=== PATIENT | male | born 1950 | race Caucasian/White ===

== ENCOUNTER 2022-09-05 10:25 | Day surgery (SDC) | payer MEDICARE, OTHER ==
[~2022-09-05] VITALS: Ht 193 cm; Wt 95.5 kg
[~2022-09-05 10:25] MED LIST: CYMBALTA20 MG PO; INTRINSI B12-F1 EACH PO; NEURONTIN100 MG PO; OSTERA TABLET1 EACH PO; RAPAFLO8 MG PO; SENOKOT8.6 MG PO; TRUSOPT10 ML; VYVANSE20 MG PO
[2022-09-05] MEDS ORDERED: IBUPROFEN200 MG PO (10:54)
--- NOTE | 2022-09-05 13:05 | NUR ---
09/05/22 1305 Marlee Anderson 1300 PATIENT ARRIVES TO PACU AWAKE BUT DROWSY. LAYING PRONE, REPOSITIONS SELF TO LEFT LATERAL POSITION. RESP EVEN AND UNLABORED, OXYGEN OFF, ROOM AIR SATS 100%. REPORTS MINMAL PRESSURE LEFT HIP AREA. DENIES NAUSEA.
--- NOTE | 2022-09-14 10:26 | PATH ---
[facility] [address] [facility] [place], [place] [address] Signed THIS IS AN ADDENDUM REPORT SPECIMEN(S): A BONE MARROW - CORE SPECIMEN(S): B BONE MARROW - ASPIRATION SPECIMEN(S): C FLOW CYTOMETRY, BM EDTA ASP CLINICAL HISTORY: 72-year-old male with chronic hypoplastic anemia and variable leukopenia. D46.9 (myelodysplastic syndrome, unspecified) DIAGNOSIS SUMMARY: Peripheral blood - Borderline macrocytic anemia. - No circulating blasts are identified. Bone marrow biopsy and aspiration: - Normocellular marrow, 30%, with 1% blasts. - Trilineage hematopoiesis with no significant dyspoiesis. - Decreased marrow iron stores by Prussian Blue stain. - No malignancy is identified. - See Diagnostic Comment. DIAGNOSTIC COMMENT: The marrow is normocellular with no significant morphologic dyspoiesis. A reactive process is favored for the reported variable leukopenia. Reactive etiologies for the reported macrocytic anemia should be excluded to include thyroid disease and nutritional disorders. The marrow iron stores appear decreased by Prussian Blue staining. Correlation with serum iron stores is needed. Pending studies at the time of this report include chromosome analysis, FISH study for MDS and NGS myelodysplasia profile. These results will be reported in an addendum. JLP:C2NR HISTORICAL SUMMARY: 72-year-old male with a clinical history of macrocytic anemia and variable leukopenia. There are no prior hematology cases in the [facility] data base. This bone marrow exam is for diagnosis. PERIPHERAL BLOOD: HEMOGRAM (09/05/2022): WBC 4.7 K/ul, RBC 3.93 M/ul, HGB 13.1 g/dl, HCT 39.7%, MCV 100.7 fl, MCH 33.4 pg, MCHC 33.1 g/dl, RDW 13.1%, PLT 209 K/ul. PATIENT NAME: OHNEY REECE PATHOLOGY DATE OF : 52 REPORT #: [id number] PHYSICIAN: TOBY PATHOLOGY PCP: RICHARD OVALLE MD REPORT IS CONFIDENTIAL AND NOT TO BE RELEASED WITHOUT AUTHORIZATION [facility] [address] [place], [place] [address] Signed AUTOMATED DIFFERENTIAL COUNT: Neutrophils 64.8%, lymphocytes 20.7%, monocytes 9.7%, eosinophils 3.5%, basophils 1.3%. The red blood cells are borderline macrocytic and normochromic with minimal anisopoikilocytosis. The neutrophils are unremarkable. Lymphocytes are composed of small mature appearing forms. Platelets appear normal in number and morphology with no platelet clumping or RBC microangiopathic effect identified. No blasts are identified. BONE MARROW: ASPIRATE SMEARS/TOUCH IMPRINT: The aspirate smears are mostly hemodilute but one smear has marrow spicules and is adequate for evaluation. Scattered erythroid precursors show adequate maturation with essentially normal morphology. The myeloid precursors show full maturation with unremarkable morphology. There is no increase in blasts. Megakaryocytes are identified with a normal morphology. BONE MARROW DIFFERENTIAL COUNT (300 cells): Blasts 1%, promyelocytes 1%, myelocytes 7%, metamyelocytes/bands/segs 39%, erythroid precursors 38%, lymphocytes 6%, monocytes 3%, eosinophils 4%, plasma cells 1%. M:E ratio: 1.4:1 BONE MARROW CORE BIOPSY/ASPIRATE CLOT/CELL BLOCK: The aspirate clot section and the core biopsy are adequate for evaluation. The core biopsy demonstrates unremarkable trabecular bone. The cellularity is normal for age, estimated at 30%. The erythroid precursors are within normal limits with essentially unremarkable maturation. The myeloid precursors are unremarkable with no significant dyspoiesis. Blasts are not increased. Megakaryocytes appear normal in number and in morphology. No granulomas, atypical lymphoid aggregates or foreign malignant cells are detected. SPECIAL STAINS (with adequate controls): - iron (aspirate smear): No marrow spicules are present for evaluation of marrow iron stores. - iron (cell block): Decreased marrow iron stores by Prussian Blue stain. No ring sideroblasts are identified. - PAS (block A1): Normal megakaryocytes in number and in morphology. IMMUNOHISTOCHEMISTRY STAINS (performed on block A1 with adequate controls). - CD34: 1% - CD117: 1% - CD71: 20% - CD138: 1% FLOW CYTOMETRY: PATIENT NAME: HONEY REECE PATHOLOGY DATE OF : 52 REPORT #: [id number] PHYSICIAN: TOBY PATHOLOGY PCP: RICHARD OVALLE MD REPORT IS CONFIDENTIAL AND NOT TO BE RELEASED WITHOUT AUTHORIZATION [facility] [address] [place], [place] [address] Signed Bone marrow, flow cytometry: - No diagnostic abnormal populations are identified by flow cytometry. - See Comment. COMMENT: While no hematopoietic abnormality is detected in this study, correlation with clinical, morphologic, and genetic findings is recommended for full interpretation and to assess for disease processes not fully examined by flow cytometry analysis, including myelodysplastic syndrome and myeloproliferative neoplasm. FLOW CYTOMETRY ANALYSIS: FLOW DIFFERENTIAL (% Total CD45 vs. SSC gating): Myeloid 84%; Lymphoid 7%; Monocyte 2%; Dim CD45/Blast: 0.6%. Cell Count: 8.3 x 10*3/uL. POPULATION ANALYSIS: BLASTS: Analysis of the dim CD45 gate demonstrates 0.6% myeloblasts by CD34/CD117. 0.4% hematogones are also detected. LYMPHOID CELLS: The lymphocyte gate comprises 7% of total events and includes 77% T-cells with a CD4:CD8 ratio of 2.4:1 and normal benitez T-cell antigen expression. 5% of lymphocytes are polyclonal B-cells with a kappa:lambda ratio of 1.7:1. The remainders are NK-cells. MYELOID CELLS: The myeloid population comprises 7% of the total events. Some increased CD56 expression is observed. MONOCYTES: The monocyte population comprises 2% of the total events. Monocytes are not increased. Some increased CD56 expression is observed. PLASMA CELLS: 0.4% plasma cells are detected in the screening gate neg-dimCD45/CD38. Plasma cells are CD45 dim and positive for CD19. MAST CELLS: 0.2% of total events are mast cells (n=31). ANTIBODIES USED: KAPPA, LAMBDA, CD20, CD10, CD19, CD23, CD38, CD16, CD56, CD8, CD5, CD2, CD4, CD7, CD3, CD14, CD33, CD13, HLADR, CD34, CD117, CD15, CD45: TOTAL ANTIBODIES USED: 23. JNB FINAL DIAGNOSIS PERFORMED BY: Fareed Mohan MD, Sep 06 2022 4:47PM CYTOGENETICS: Chromosome analysis is pending, and the result will be reported in an addendum. FISH ANALYSIS: A FISH panel for MDS is pending, and the result will be reported in an addendum. PATIENT NAME: HONEY REECE PATHOLOGY DATE OF : 52 REPORT #: [id number] PHYSICIAN: TOBY MALHOTRA PCP: RICHARD OVALLE MD REPORT IS CONFIDENTIAL AND NOT TO BE RELEASED WITHOUT AUTHORIZATION [facility] [address] [place], [place] [address] Signed MOLECULAR / PCR: NeoTYPE NGS MDS/CMML panel is requested, and the result will be reported in an addendum. GROSS DESCRIPTION: Two specimens are received in two containers, labeled "CL." A. The specimen, labeled "CL, core," is received in formalin and consists of two cores of brown-reilly bone (1.0 and 1.2 cm in length by 0.2 cm diameter). The specimen is submitted entirely in cassette A1 following decalcification in Immunocal. B. The specimen, labeled "CL, clot," is received in formalin and consists of a portion of red-brown clot (2.0 x 0.8 x 0.2 cm in aggregate). The specimen is submitted entirely in cassette B1. AC (under the direct supervision of a pathologist) The Gross Description was prepared using a voice recognition system. The report was reviewed for accuracy; however, sound-alike word errors, addition and/or deletions may occur. If there is any question about this report, please contact Client Services. ADDITIONAL NOTES: This test was developed and its performance characteristics determined by [facility]. It has not been cleared or approved by the US Food and Drug Administration. The FDA does not require this test to go through premarket FDA review. This test is used for clinical purposes. It should not be regarded as investigational or for research. This laboratory is certified under the Clinical Laboratory Improvement Amendments (CLIA) as qualified to perform high complexity clinical laboratory testing. Immunohistochemical and/or in situ hybridization studies were performed on this case with the appropriate positive controls that react as expected. This test was developed and its performance characteristics determined by [facility]. It has not been cleared or approved by the U.S. Food and Drug Administration. The FDA has determined that such clearance or approval is not necessary. This test is used for clinical purposes. It should not be regarded as investigational or for research. [facility] is certified under the Clinical Laboratory Improvement Amendments of 1988 (CLIA) as qualified to perform high complexity clinical laboratory testing. This assay has not been validated for specimens that have been decalcified. PATIENT NAME: HONEY REECE PATHOLOGY DATE OF : 52 REPORT #: [id number] PHYSICIAN: TOBY MALHOTRA PCP: RICHARD OVALLE MD REPORT IS CONFIDENTIAL AND NOT TO BE RELEASED WITHOUT AUTHORIZATION [address] [address] Signed In this case, certain antibodies were performed by both immunohistochemistry and flow cytometry analysis because flow cytometry analysis did not fully explain all the light microscopic findings. Immunohistochemistry aided in the analysis. Both methods are deemed medically necessary in this case. PERFORMING LABORATORY: The technical component was performed by [facility], [address] [id number] (CLIA#: [id number]). Professional interpretation was performed by [facility] - [facility], [address] [place] [phone] (CLIA#: [id number]). A portion of the technical component was performed by [facility], [address] [place] [address] (CLIA# [id number]). A portion of the technical component was performed by [facility], [facility] [place] [address] (CLIA#: [id number]). Professional interpretation was performed by [facility] - [facility], [address] [place] [phone] (CLIA#: [id number]). IMAGES: A: [id number] A: [id number] SPECIMEN SOURCE: A. FISH Analysis, MDS FISH, BM EDTA CLINICAL HISTORY: 72-year-old male with chronic hypoplastic anemia and variable leukopenia. D46.9 (myelodysplastic syndrome, unspecified) FISH (fluorescence in situ hybridization) RESULT: Not Detected INTERPRETATION: 5q deletion/monosomy 5: Not detected. 7q deletion/monosomy 7: Not detected. Trisomy 8: Not detected. 20q deletion: Not detected. KMT2A (MLL) rearrangement: Not detected. Fluorescence in situ hybridization (FISH) analysis was performed using a specific set of probes for myelodysplastic syndrome. Counts for all probe signals were within the normal reference range. This finding represents a NORMAL result. FISH should be interpreted within the context of a full cytogenetic analysis and hematologic evaluation. PATIENT NAME: HONEY REECE PATHOLOGY DATE OF : 52 REPORT #: [id number] PHYSICIAN: TOBY PATHOLOGY PCP: RICHARD OVALLE MD REPORT IS CONFIDENTIAL AND NOT TO BE RELEASED WITHOUT AUTHORIZATION [facility] [address] [place], [place] [address] Signed ISCN: Probe Set Detail: EGR1/T7G111: nuc josiah 5p15.31(N0F055p8), 5q31(EGR1x2)[200] X9I830/CEP7: nuc josiah 7q31(B8V220q9),7q11.2q11.21(CEP7x2)[200] CEP8: nuc josiah 8q11.1q11.21(CEP8x2)[200] L94E345: nuc josiah 20q12(I61Q017m6)[200] KMT2A (MLL): nuc josiah 11q23(5'KMT2A,3'KMT2A)x2(5'KMT2A con 3'AFL2Nr8)[200] References: Sherron Truong (2013) Hematology Am Soc Hematol Educ Program 2013:504-10. PMID [id number] Maddie Moore and Keely Jackman (2011) Hematology 16(3):131-8. PMID: [id number] FISH Analysis Summary: Nuclei Scored: 200 Scoring Method: Manual; CPT Code 60577 Number of Probe units: 4 Multiplex Cells analyzed: Interphase Probe sets: Chrom 8: LACI 8, Chrom 20: D61O862, Chrom 5: EGR1, Chrom 5: H9R824, Chrom 7: CEN7, Chrom 7: Q2D0132, Chrom 11: KMT2A (MLL) 3', Chrom 11: KMT2A (MLL) 5 ADDITIONAL NOTES: This test was developed and its performance characteristics determined by [facility] It has not been cleared or approved by the US Food and Drug Administration. The O[employer]o DNA probe vendor for this study was [employer]. PERFORMING LABORATORY: The technical component of the FISH testing was performed by [facility], [address] [place] [address] [place] [address] (CLIA#: [id number]). [facility], [address] [place] [phone] (CLIA#: [id number]). FINAL DIAGNOSIS PERFORMED BY: Shireen Baca MD, Pathologist Sep 14 2022 9:10AM REASON FOR ADDENDUM: To add results of additional testing. Diagnostician: Fareed Mohan MD Pathologist Diagnostician: Shireen Baca MD Pathologist PATIENT NAME: HONEY REECE PATHOLOGY DATE OF : 52 REPORT #: [id number] PHYSICIAN: TOBY MALHOTRA PCP: RICHARD OVALLE MD REPORT IS CONFIDENTIAL AND NOT TO BE RELEASED WITHOUT AUTHORIZATION [facility] [address] [place], [place] [address] Signed Diagnostician: Derrick Caballero MD, FACP Pathologist Electronically Signed 09/14/2022 Copies: ~ PATIENT NAME: HONEY REECE PATHOLOGY DATE OF : 52 REPORT #: [id number] PHYSICIAN: TOBY PATHOLOGY PCP: RICHARD OVALLE MD REPORT IS CONFIDENTIAL AND NOT TO BE RELEASED WITHOUT AUTHORIZATION
== END 2022-09-05 13:35 | disposition home or self-care (01) ==
LOC: DS 10:25 → OPS 10:25 → DS 12:00 → OPS 13:35
PROVIDERS: ATTEND Specialist
PROC: 07JT3ZZ Inspection of Bone Marrow, Percutaneous Approach (ICD-10-PCS; principal; 2022-09-05 12:00)
DX: D46.9 Myelodysplastic syndrome, unspecified (principal); F41.9 Anxiety disorder, unspecified; N40.0 Benign prostatic hyperplasia without lower urinary tract symptoms
CPT/HCPCS: 36415; 85025; 88184; 88185; 88305; 88311; 88313; 88342; 88360; 88377; A9270; J2704; J7121

== ENCOUNTER 2025-07-15 18:52 | Emergency (ER) | payer MEDICARE, OTHER ==
[~2025-07-15] VITALS: Ht 193 cm; Wt 99.1 kg
--- OUTSIDE RECORDS SUMMARY | ~2025-07-15 | XMS | Continuity of Care Document ---
Demographics + + + | Address | [address] | | | [place] [address] | + + + | Preferred Language | Unknown | + + + | Marital Status | | + + + | Presybeterian Affiliation | Unknown | + + + | Race | White | + + + | Ethnic Group | Not or | + + + Author + + + | Author | [facility] | + + + | Organization | [facility] | + + + | Address | [address] | | | [place] [address] | + + + | Phone | | + + + Care Team Providers + + + + | Care Passenger Service Agent Name | Role | Phone | + + + + Unavailable | Unavailable | + + + + Allergies No information. Encounters No information. Functional Status No information. Immunizations No information. Medications No information. 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 Results/Labs No information. Social History +--------+ + + | date | description | facility | +--------+ + + Vital Signs No information."
[~2025-07-15 18:52] MED LIST changes: +IBUPROFEN200 MG PO; -INTRINSI B12-F1 EACH PO; +VITAMIN B-121000 MCG PO
[2025-07-15 21:05] LABS: BASOPHILS 0.3 % (0.2-1.2); EOSINOPHILS 1.0 % (0.8-7.0); LYMPHOCYTES 5.8 % (21.8-53.1); MCH 33.4 PG (25.7-32.2); MCHC 34.1 g/dL (32.3-36.5); MCV 97.9 fL (79.0-92.2); MONOCYTES 6.2 % (5.3-12.2); NEUTROPHILS 86.6 % (34.0-67.9); RBC 4.31 M/uL (4.63-6.08)
[2025-07-15] MEDS ORDERED: LACTATED RINGER'S 1,000 ML IV ONE ×2 (21:15→23:00)
[2025-07-15 21:26] LABS: ALT (SGPT) 29.0 U/L (14-59); AST (SGOT) 35.0 U/L (15-37); GLOMERULAR FILTRATION RATE,EST 90.0 mL/min (>60); PROTEIN, TOTAL 7.4 g/dL (6.4-8.2); UREA NITROGEN 22.0 mg/dL (7-18)
[2025-07-15] MEDS ORDERED: TRAMADOL HCL50 MG PO (21:26)
[2025-07-15 23:25] LABS: BLOOD/HGB, URINE TRACE-I (Negative); KETONE, URINE SMALL (Negative); LEUK ESTERASE, URINE NEGATIVE (negative); NITRITE, URINE NEGATIVE (negative)
[2025-07-15 23:30] LABS: EPITHELIAL CELLS, URINE SQUAMOUS 1+ /lpf (0-1+)
[2025-07-15 23:31] LABS: BACTERIA, URINE RARE /hpf (negative); CASTS, URINE NONE SEEN \\lpf; CRYSTALS, URINE NONE SEEN (0-1+); REFLEX CULTURE, URINE No (No)
[2025-07-16 02:31] VITALS: BP 128/57
[2025-07-16] MEDS ORDERED: DORZOLAMIDE-TIM10 ML OS (09:04)
[2025-07-16] MEDS ORDERED: DULOXETINE HCL60 MG PO (09:05)
[2025-07-16] MEDS ORDERED: IBUPROFEN600 MG PO (11:52)
[2025-07-16] MEDS ORDERED: ZANAFLEX4 MG PO (11:53)
[2025-07-16] MEDS ORDERED: PEPCID20 MG PO (11:55)
[2025-07-16] MEDS ORDERED: COLACE100 MG PO (11:55)
== END 2025-07-16 00:50 | disposition home or self-care (01) ==
LOC: ED 18:52
PROVIDERS: Internal Medicine
DX: K59.00 Constipation, unspecified (principal); E86.0 Dehydration; Z79.899 Other long term (current) drug therapy
CPT/HCPCS: 36415; 51798; 80053; 81001; 84443; 85025; 96360; 96361; 99283-25; J2212; J7121

== ENCOUNTER 2025-07-16 03:15 | Inpatient (IN) | payer MEDICARE, OTHER ==
[2025-07-16] VITALS (12 sets, daily range): BP systolic 125–169; BP diastolic 61–87
[~2025-07-16] VITALS: Ht 193 cm; Wt 100.6 kg
--- OUTSIDE RECORDS SUMMARY | ~2025-07-16 | XMS | Continuity of Care Document ---
Demographics + + + | Address | [address] | | | [place] [address] | + + + | Preferred Language | Unknown | + + + | Marital Status | | + + + | Voodoo Affiliation | Unknown | + + + | Race | White | + + + | Ethnic Group | Not or | + + + Author + + + | Author | [facility] | + + + | Organization | [facility] | + + + | Address | [address] | | | [place] [address] | + + + | Phone | | + + + Care Team Providers + + + + | Care Cake Press Operator Helper Name | Role | Phone | + [...]
--- OUTSIDE RECORDS SUMMARY | ~2025-07-16 | XMS | Continuity of Care Document ---
Demographics + + + | Address | [address] | | | [place] [address] | + + + | Preferred Language | Unknown | + + + | Marital Status | | + + + | Spiritism Affiliation | Unknown | + + + | Race | White | + + + | Ethnic Group | Not or | + + + Author + + + | Author | [facility] | + + + | Organization | [facility] | + + + | Address | [address] | | | [place] [address] | + + + | Phone | | + + + Care Team Providers + + + + | Care Central Sterile Tech Name | Role | Phone | + [...]
[~2025-07-16 03:15] MED LIST changes: +TRAMADOL HCL50 MG PO
--- OUTSIDE RECORDS SUMMARY | 2025-07-16 03:16 | XMS ---
PreManage Notification: HONEY REECE Security [employer] Representative Events No recent Security Events currently on file CRITERIA MET - [facility] - 2 Visits in 30 Days CARE PROVIDERS FABIAN [facility] Current PHONE: Unknown Martell has no Care Guidelines for this patient. Chiara VISIT COUNT (12 MO.) 2 [facility] TOTAL 2 NOTE: Visits indicate total known visits. ED/UCC VISIT TRACKING (12 MO.) 07/16/2025 03:15 [facility] TYPE: Emergency COMPLAINT: - ABDOMINAL PAIN 07/15/2025 18:53 [facility] TYPE: Emergency COMPLAINT: - ABDOM PAIN/BOWL PROBLEM INPATIENT VISIT TRACKING (12 MO.) No inpatient visits to display in this time frame [email or web address]
[2025-07-16] MEDS ORDERED: LACTATED RINGER'S 1,000 ML IV ONE (04:30)
[2025-07-16] MEDS ORDERED: CEFAZOLIN SODIUM 2 GM/20 ML SYR IV ONE (04:45)
[2025-07-16] MEDS ORDERED: MORPHINE SULFATE 4 MG/ML VIAL IV ONE (04:45)
[2025-07-16] MEDS ORDERED: MORPHINE SULFATE 4 MG/ML VIAL IV PRN (05:00)
[2025-07-16] MEDS ORDERED: FAMOTIDINE 20 MG/ 2 ML VIAL IV ONE (05:00)
[2025-07-16] MEDS ORDERED: LACTATED RINGER'S 1,000 ML IV SCH ×2 (05:00→09:45)
[2025-07-16 05:04] LABS: LACTIC ACID, BLOOD 1.1 mmol/L (0.4-2.0)
--- NOTE | 2025-07-16 07:15 | NUR ---
REPORT RECEVIED FROM HAND EXPANSION ENVELOPE MAKER ALEX GOODMAN. IV BOLUS COMPLETE AT THIS TIME. PATIENT IS BEING ASSISTED TO THE BATHROOM WITH CHRIS ARITA AT THIS TIME. CALL LIGHT AND PEROSNAL BELONGINGS ARE WITHIN REACH.
--- NOTE | 2025-07-16 08:45 | NUR ---
PRN MORPHINE ADMINISTERED FOR 8/10 ABDOMINAL PAIN. FULL ASSESSMENT COMPLETE AND DOCUMENTED IN THE CHART. PATIENT IS ON TELEMETRY 1 AND IN SINUS RHYTHM. MURMUR HEARD ON AUSCULTATION. LR IS INFUSING AT 125 ML/HR. LAST BM WAS 07/12/25. PATIENT IS ALERT AND ORIENTED TIMES FOUR. PATIENT IS NPO. BOWEL TONES ARE ACTIVE IN ALL FOUR QUADRANTS. ABDOMEN IS MILDLY DISTENDED AND FIRM TO PALPATION. NO NAUSEA REPORTED. PATIENT STATED NO FURTHER NEEDS AT THIS TIME. CALL LIGHT AND PERSONAL BELONGINGS ARE WITHIN REACH.
[2025-07-16] MEDS ORDERED: DORZOLAMIDE-TIM10 ML OS (09:04)
[2025-07-16] MEDS ORDERED: DULOXETINE HCL60 MG PO (09:05)
--- NOTE | 2025-07-16 09:07 | NUR ---
IV PUMP RESTARTED. PATIENT IS LYING IN BED WITH HOB ELEVATED. PATIENT WITH EYES CLOSED AND RESPIRATIONS ARE EVEN AND UNLABORED. CALL LIGHT AND PERSONAL BELONGINGS ARE WITHIN REACH.
[2025-07-16] MEDS ORDERED: FAMOTIDINE 20 MG/ 2 ML VIAL IV SCH (09:33)
[2025-07-16] MEDS ORDERED: MORPHINE SULFATE 10 MG/ML VIAL IV PRN (09:45)
--- NOTE | 2025-07-16 09:59 | NUR ---
PATIENT LEFT THE FLOOR AT THIS TIME WITH OR NURSE.
--- NOTE | 2025-07-16 10:14 | NUR ---
PT REMAINS OFF THE FLOOR AT THIS TIME. CHRIS MCCAULEY, CHANGING BED LINENS.
--- NOTE | 2025-07-16 10:29 | NUR ---
PATIENT IN SURGERY AT THIS TIME. COCOA POWDER MIXER OPERATOR CHANGED PATIENTS LINENS.
[2025-07-16] MEDS ORDERED: LIDOCAINE HCL 2% 5 ML SDV ONE (10:35)
--- NOTE | 2025-07-16 11:08 | NUR ---
PT REMAINS OFF THE FLOOR AT THIS TIME.
--- NOTE | 2025-07-16 11:20 | NUR ---
REPORT RECEIVED FROM JAN Seymour RN AT THIS TIME.
--- NOTE | 2025-07-16 11:27 | NUR ---
VITAL SIGNS TAKEN AND DOCUMENTED IN THE CHART. PATIENT WITH NO COMPLAINTS OF SOB OR PAIN. CPOX AT THE BEDSIDE. IV SITE FLUSHED WITH 10 ML NORMAL SALINE. LR IS INFUSING AT 85 ML/HR. IV SITE IS CLEAN, DRY, AND INTACT. NEW CHUX PLACED ON THE BED. PATIENT REMAINS AT BEDSIDE. PATIENT STATED NO FURTHER NEEDS AT THIS TIME. CALL LIGHT AND PERSONAL BELONGINGS ARE WITHIN REACH.
[2025-07-16] MEDS ORDERED: GLYCERIN 1 GM SUPP PR ONE (11:30)
--- NOTE | 2025-07-16 11:42 | NUR ---
07/16/25 1142 Concepción Anthony 1053 PT ARRIVED TO PACU ASLEEP AND VSS. RESP EVEN AND UNLABORED. RN ROLLS PT SLIGHT OFF LEFT SHOULDER, PT DOES NOT WAKE TO TACTILE SITMULI 1058 PT WAKES AND IS REORIENTED TO PACU. PT ASKING FOR HIS GLASSES. 1059 MD AT BEDSIDE TALKING TO PT. PT ROLLED TO BACK AND HOB INCREASED. 1120 PT RETURNED TO ROOM WTIH AT BEDSIDE. PT MOVED HIMSELF TO BED LIQUID EMIL NOTED ON MIRIAM MED-MACHINE PLATE STACKER AWARE. ALL QUESTIONS ANSWERED AND REPORT GIVEN.
--- NOTE | 2025-07-16 11:49 | NUR ---
UR CLINICAL REVIEW: 2MN ESTEPHANIE, MEETS INPT FOR SIGMOID VOLVULUS COLONOSCOPY COMPLETED, IV FLUIDS, IV MEDS, LIQUID DIET MEDICARE INPT 07/16/2025 @ 0933 ORDER MATCHES REG NO AUTH REQUIRED PER MEDICARE RULES DC TO HOME WHEN MEDICALLY READY
--- NOTE | 2025-07-16 11:50 | NUR ---
PT NOT AVAILABLE FOR VISIT. PROVIDED PRAYER.
[2025-07-16] MEDS ORDERED: IBUPROFEN600 MG PO (11:52)
[2025-07-16] MEDS ORDERED: ZANAFLEX4 MG PO (11:53)
[2025-07-16] MEDS ORDERED: PEPCID20 MG PO (11:55)
[2025-07-16] MEDS ORDERED: COLACE100 MG PO (11:55)
--- NOTE | 2025-07-16 11:55 | NUR ---
MED REC COMPLETE
--- NOTE | 2025-07-16 13:00 | NUR ---
PATIENT IS STANDING IN THE BATHROOM UPON RN ENTERING THE ROOM. PATIENT WITH LIQUID STOOL ON THE FLOOR. PATIENT ASSISTED BACK TO THE BED. WIPE DOWN COMPLETE. NEW GOWN, SOCKS, AND BRIEF ON. SUPPOSITORY ADMINISTERED PER THE EMAR. SECOND SET OF POST OP VITAL SIGNS TAKEN AND DOCUMENTED IN THE CHART. BATHROOM WIPED DOWN WITH PURPLE WIPES. PATIENT ARRIVED AT BEDSIDE. MARY ELLEN LARIOS RN INSERTED NEW IV AFTER TWO ATTEMPTS BY THIS RN. PATIENT WITH LUNCH TRAY AT BEDSIDE. PATIENT EDUCATED ON USING THE CALL LIGHT WHEN URGE TO USE THE BATHROOM. COMMODE AT BEDSIDE. PATIENT EXPRESSED UNDERSTANDING. BED ALARMS ON. PATIENT STATED NO FURTHER NEEDS AT THIS TIME. CALL LIGHT AND PERSONAL BELONGINGS ARE WITHIN REACH.
--- NOTE | 2025-07-16 13:38 | NUR ---
PERSONAL HEALTH INFORMATION REVIEWED. PATIENT LIVES AT HOME WITH . PATIENT HAS TWO STEPS INTO THE HOME. PATIENT USES WALKING STICKS. DOES NOT USE OXYGEN OR CPAP AT HOME. DOES DRIVE. PATIENT DENIES ANY DIFFCULTY PAYING UTLITIES OR OBTAINING FOOD. NO FUTHER CM NEEDS.
--- NOTE | 2025-07-16 13:40 | NUR ---
PATIENT IN BED AT THIS TIME. GOLD MARKER ASSISTED PATIENT TO BEDSIDE COMMODE AND THEN ASSISTED PATIENT TO BATHROOM. CALL LIGHT WITHIN REACH, NO FURTHER NEEDS AT THIS TIME.
--- NOTE | 2025-07-16 14:32 | HP ---
[facility] [address], [place] [address] Signed ADMISSION DATE: 07/16/2025 REASON FOR ADMISSION: Sigmoid volvulus. 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 He continues to live in [place], though in the last few years of his practice was in [place], [place]. The patient presented to the emergency room at approximately 3:30 in the morning and evaluated by Dr. Saba with recurrent abdominal pain. He had been seen in the preceding 24 hours in the emergency room with abdominal pain which was of uncertain origin. He was noted to have a week's worth of constipation and clinical dehydration. His bladder was essentially empty on ultrasound when he arrived. He was hydrated with intravenous fluids and felt better. Unfortunately, he had recurrent abdominal pain and presented once again to the emergency room where he was thoroughly evaluated by Dr. Saba including at that point a CT scan of the abdomen. The CT scan quite clearly showed a markedly distended abdomen with colonic air and findings consistent with sigmoid volvulus. He is admitted for further evaluation and care. Since admission, he has been given intravenous fluids. A nasogastric tube was not placed. He has had no nausea or vomiting. He does feel somewhat improved and his pain is mostly located in the lower abdomen. PAST MEDICAL HISTORY: Noted for lumbosacral pain. He does take medication for this. He is generally in the good health otherwise. He is known to have aortic stenosis, but without exertional chest pain or dyspnea on exertion. Other medical history includes gastroesophageal reflux, peripheral neuropathy, glaucoma, ADD, and radiculopathy. MEDICATIONS: Current medications at presentation include 1. Tramadol. 2. Ibuprofen. 3. Trusopt. 4. Vitamin B12. 5. Vyvanse. 6. Senokot. 7. Duloxetine. Electronically Signed By: TERRY HOOPER MD 07/16/25 1432 PATIENT NAME: HONEY REECE HISTORY AND PHYSICAL DATE OF : 52 REPORT #: [id number] PHYSICIAN: TERRY HOOPER MD PCP: JUAQUIN DUMONT MD REPORT IS CONFIDENTIAL AND NOT TO BE RELEASED WITHOUT AUTHORIZATION [address] [address] Signed 8. Silodosin. SOCIAL HISTORY: He is , lives in [place]. 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 REVIEW OF SYSTEMS: He denies any nausea, vomiting, or particular shortness of breath. Denies dyspnea on exertion. He does feel bloated. PHYSICAL EXAMINATION: GENERAL: Large white man who looks to be nontoxic at this time. NECK: Trachea is midline. HEART: Does confirm a mid systolic ejection murmur concordant to underlying known aortic stenosis history. LUNGS: Breath sounds are equal bilaterally and clear. ABDOMEN: Quite markedly distended, is not particularly tender, however. EXTREMITIES: Show no clubbing, cyanosis, or edema. LABORATORY DATA: Imaging study shows a markedly distended abdomen with considerable amount of colonic air. Findings are consistent with the radiologist interpretation of sigmoid volvulus. There does not appear to be a significant amount of stool burden within the colon. ASSESSMENT: The patient has clinical findings of sigmoid volvulus. Decompression of the colon would be appropriate as a first measure. We discussed the pathophysiology of this problem with the use of illustrations on the white board and so on. There are risks to colonoscopic decompression of the colon including but not limited to bleeding, infection, and perforation and we discussed that in detail. The long-term goal would be resection of redundant sigmoid and other portions of colon as appropriate. It will be referable that complete decompression of the colon is accomplished and allowing for primary anastomosis without need for diversion. For now, the main issue is to decompress the colon as to limit the chance of perforation. Clear of the distended colon and other areas of the colon which did appear to be dilated as well. MD JOSE MANUEL Turner/AMANDAL Electronically Signed By: TERRY HOOPER MD 07/16/25 1432 PATIENT NAME: HONEY REECE HISTORY AND PHYSICAL DATE OF : 52 REPORT #: [id number] PHYSICIAN: TERRY HOOPER MD PCP: JUAQUIN DUMONT MD REPORT IS CONFIDENTIAL AND NOT TO BE RELEASED WITHOUT AUTHORIZATION [address] [address] Signed /[id number] cc: Dr. Wandy Dumont Copies: ~ Electronically Signed By: TERRY HOOPER MD 07/16/25 1432 PATIENT NAME: HONEY REECE HISTORY AND PHYSICAL DATE OF : 52 REPORT #: [id number] PHYSICIAN: TERRY HOOPER MD PCP: JUAQUIN DUMONT MD REPORT IS CONFIDENTIAL AND NOT TO BE RELEASED WITHOUT AUTHORIZATION
--- NOTE | 2025-07-16 14:32 | OR ---
[facility] [address], [place] [address] Signed DATE OF OPERATION: 07/16/2025 SURGEON: Terry Hooper MD PREOPERATIVE DIAGNOSIS: Sigmoid volvulus. POSTOPERATIVE DIAGNOSIS: Sigmoid volvulus. PROCEDURE: Decompressive colonoscopy to right colon. ANESTHESIA: Intravenous sedation propofol, Kwasi Bansal CRNA. 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 CT scan confirmed findings consistent with a colonic obstruction related to sigmoid volvulus. He has been given IV fluids and is now to undergo decompressive colonoscopy anticipating ultimately a sigmoid resection. The risk of bleeding, infection, and perforation were reviewed with him. He understands and wished to proceed. FINDINGS: Decompression was undertaken clinically beneficial, of course remains some air within the colon. Thick gelatinous stool within the colon was noted of course. There was no evidence of neoplasm. There was mild inflammation in a segment at the splenic flexure. Colonoscopy allowed for passage of the scope to what appeared to be the right colon. There was no evidence of polyps, diverticular lesion or other abnormality. DESCRIPTION OF PROCEDURE: The patient was brought to the endoscopy suite and placed in lateral decubitus position, given intravenous sedation with propofol infusional technique. Digital rectal examination was normal. There was no solid stool in the rectum. An Olympus video colonoscope was passed in the rectum and manipulated into the colon and an area likely forming the volvulus identified and traversed without too much problem. A large in capacious segment of colon was identified and decompressed, but additionally Electronically Signed By: TERRY HOOPER MD 07/16/25 1432 PATIENT NAME: HONEY REECE OPERATIVE REPORT DATE OF : 52 REPORT #: [id number] PHYSICIAN: TERRY HOOPER MD PCP: JUAQUIN DUMONT MD REPORT IS CONFIDENTIAL AND NOT TO BE RELEASED WITHOUT AUTHORIZATION [facility] [address], [place] [address] Signed irrigated and the scope passed beyond this ultimately to the transverse and I believe the right colon. Irrigation was undertaken in a copious wake mindful to minimize insufflation of air. The scope was withdrawn, having reached its maximum ability for passage and the irrigation undertaken. Clogging of the suction irrigation channels was noted and these areas were cleared with brush and other technique. Ultimately, the scope was dysfunctional enough due to plugging and additional colonoscope was passed beyond this area once again allowing for decompression. An area in the splenic flexure as manifest by transillumination did show inflammatory changes, which were biopsied, though they were not ischemic or necrotic in any way. Further withdrawal out for decompression of the remaining colon as much as possible. The scope was removed. The patient was taken to the recovery room in good condition. CONCLUDING DIAGNOSIS: Clinically beneficial decompression of sigmoid volvulus. PLAN: Consideration will be made for preparation or at least evacuation of air and sigmoid resection to be undertaken in a timely way. MD JOSE MANUEL Turner/BRAXTON /[id number] cc: Dr. Abel Dumont Copies: ~ Electronically Signed By: TERRY HOOPER MD 07/16/25 1432 PATIENT NAME: HONEY REECE OPERATIVE REPORT DATE OF : 52 REPORT #: [id number] PHYSICIAN: TERRY HOOPER MD PCP: JUAQUIN DUMONT MD REPORT IS CONFIDENTIAL AND NOT TO BE RELEASED WITHOUT AUTHORIZATION
--- NOTE | 2025-07-16 15:10 | NUR ---
PT SITTING UP IN BED WITH HEAD ELEVATED, ON PHONE. PT DENIES ANY NEEDS AT THIS TIME. CALL LIGHT AND PERSONAL BELONGINGS WITHIN REACH.
--- NOTE | 2025-07-16 15:26 | NUR ---
RESPONED TO RAPID RESPONSE TEAM ACTIVATION. PT NOT AVAILABLE FOR VISIT. NO FAMILY PRESENT. PROVIDED PRAYER.
--- NOTE | 2025-07-16 15:44 | NUR ---
PATIENT IN BED AT THIS TIME. THIS VAMP MAKER WALKED PAST PATIENTS ROOM, PATIENT WAS STANDING UP FROM THE BEDSIDE COMMODE BY HIMSELF IN PATIENT ROOM. THIS VAMP MAKER WENT INTO PATIENT ROOM TO ASSIST PATIENT WITH PERICARE, PROVIDE NEW GOWN, NEW BRIEF, AND ASSISTED HIM FROM BEDSIDE COMMODE TO BED. THIS VAMP MAKER SET ALARMS. CALL LIGHT WITHIN REACH, PATIENT HAD NO FURTHER NEEDS.
--- NOTE | 2025-07-16 16:20 | NUR ---
PT LAYING IN BED ON PHONE, RR EVEN AND UNLABORED. PT REPORTS NO PAIN, NO NAUSEA. PT IS ALERT AND ORIENTED TIMES 4. IV DRESSING IS CLEAN, DRY AND INTACT, NO SIGNS OF INFILTRATION. LR IS INFUSING AT 85 ML AN HOUR. PT WITH MILD ABDOMINAL DISTENTION, BOWEL TONES ACTIVE IN ALL 4 QUADRANTS. ABDOMEN REMAINS SLIGHTLY FIRM. PT STATED NO FURTHER NEEDS, CALL LIGHT AND PERSONAL BELONGINGS WITHIN REACH.
--- NOTE | 2025-07-16 17:26 | NUR ---
PATIENT MOVED INTO ROOM 120 AT THIS TIME FOR BETTER VISUALIZAION AND PROXIMITY. PATIENT WITH NEW GOWN ON. PATIENT IV SITE FLUSHED WITH 10 ML NORMAL SALINE AND LR IS INFUSING AT 85 ML/HR. CPOX SET UP. PATIENT IS REPOSITIONED IN BED WITH HIS DINNER SET UP IN FRONT OF HIM. PATIENT STATED NO FURTHER NEEDS AT THIS TIME. CALL LIGHT AND PERSONAL BELONGINGS ARE WITHIN REACH. BED ALARM IS ON.
--- NOTE | 2025-07-16 18:09 | NUR ---
PATIENT IS LYING IN BED WITH HOB ELEVATED. DINNER TRAY REMAINS SET UP IN FRONT OF THE PATIENT. PATIENT IS TALKING ON THE PHONE. CPOX AT BEDSIDE. CALL LIGHT AND PERSONAL BELONGINGS ARE WITHIN REACH.
--- NOTE | 2025-07-16 18:40 | NUR ---
PATIENT IS IN BED AT THIS TIME, CHRIS ARITA AND I ASSISTED PATIENT TO THE RESTROOM, CHANGED HIS BREIF, NEW SHEET, CHARTED VITALS AND I&O'S, CALL LIGHT WITH IN REACH AND NOTHING ELSE NEEDED AT THIS TIME.
--- NOTE | 2025-07-16 19:20 | NUR ---
REPORT RECEIVED FROM BEATRIZ JOHNSON. BOARD UPDATED. pt RESTING IN THE BED. pt DENIES ANY OTHER NEEDS AT THIS TIME. CALL LIGHT WITHIN REACH.
--- NOTE | 2025-07-16 19:52 | NUR ---
Patient up with 1PA to bathroom. Pt standing using the urinal. As patient was urinating he started to have diarrhea that then went down patients legs to the floor. Patient helped to the toilet and advised to sitdown so he does not fall. HAZARDOUS SUBSTANCES SCIENTIST and this nurse cleaned up patient, placed new gown, socks on patient. Patient back to bed, hooked back up to cpox and IV fluids. Patient given fresh water. Bathroom cleaned, facilities also called to clean over one more time. Patient thankful for the help. New depends on. Patient denies any other cares at this time.
--- NOTE | 2025-07-16 20:37 | NUR ---
HYDRAULIC HAMMER OPERATOR OBTAINED VITALS AND I&O. PT STATES NO NEEDS AT THIS TIME. CALL LIGHT WITHIN REACH AND BED ALARM ON.
--- NOTE | 2025-07-16 21:30 | NUR ---
ASSESSMENT AND VITAL SIGNS DONE. IV ASSESSED, WNL. SCHEDULED MEDS ADMINISTERED. BOWEL TONES ACTIVE. pt DENIES ANY OTHER NEEDS AT THIS TIME. CALL LIGHT WITHIN REACH. IVF INFUSING PER ORDER.
--- NOTE | 2025-07-16 21:49 | NUR ---
CALL LIGHT ANSWERED. PT NEEDED TO USE BATHROOM. INSURANCE BILLING CLERK 1PA TO BSC. PT VOIDED AND ASSISTED BACK TO BED. PT ASSISTED WITH CHANGING BREIFS. NO FURTHER NEEDS STATED AT THIS TIME. CALL LIGHT WITHIN REACH AND BED ALARM ON.
[2025-07-17] VITALS (8 sets, daily range): BP systolic 122–171; BP diastolic 63–95
--- NOTE | 2025-07-17 00:26 | NUR ---
pt RESTING IN THE BED WITH EYES CLOSED. RR EVEN AND UNLABORED. CALL LIGHT WITHIN REACH. BED ALARM ON.
--- NOTE | 2025-07-17 02:16 | NUR ---
BUILDING CUSTODIAN IN TO DO VITAL SIGNS. pt STOOD AT BED SIDE TO USE URINAL. pt DENIES ANY OTHER NEEDS AT THIS TIME. CALL LIGHT WITHIN REACH.
--- NOTE | 2025-07-17 03:59 | NUR ---
pt RESTING IN THE BED WITH EYES CLOSED. RR EVEN AND UNLBORED. CALL LIGHT WITHIN REACH.
[2025-07-17 05:48] LABS: BASOPHILS 0.6 % (0.2-1.2); EOSINOPHILS 1.5 % (0.8-7.0); LYMPHOCYTES 17.7 % (21.8-53.1); MCH 32.9 PG (25.7-32.2); MCHC 33.8 g/dL (32.3-36.5); MCV 97.5 fL (79.0-92.2); MONOCYTES 11.7 % (5.3-12.2); NEUTROPHILS 68.4 % (34.0-67.9); RBC 3.95 M/uL (4.63-6.08)
[2025-07-17 06:05] LABS: GLOMERULAR FILTRATION RATE,EST 95.0 mL/min (>60); UREA NITROGEN 12.0 mg/dL (7-18)
--- NOTE | 2025-07-17 06:12 | NUR ---
IN RM TO DO ASSESSMENT AND VITAL SIGNS. pt STOOD AT THE BEDSIDE TO USE URINAL. pt BACK IN THE BED. pt DENIES ANY OTHER NEEDS AT THIS TIME. CALL LIGHT WITHIN REACH.
--- NOTE | 2025-07-17 07:25 | NUR ---
THIS RN RECEIVED A CALL FROM DR HOOPER. NEW ORDERS RECEIVED AND VERIFIED WITH REPEAT BACK METHOD.
--- NOTE | 2025-07-17 08:23 | NUR ---
PATIENT TOOK A SHOWER ALSO DID THE SURGICAL WIPE DOWN. PATIENT IS ALSO DOING HIS AM CARE. CLEAN GOWN AND SOCKS AND BED LINENS CHANGED. WHEN PATIENT GETS BACK TO BED I WILL PUT THE BED ALARM ON.
--- NOTE | 2025-07-17 12:02 | NUR ---
Patient left med-surg dept for surgery.
[2025-07-17] MEDS ORDERED: DEXAMETHASONE SOD PHOS 4 MG/ML VIAL ONE ×2 (12:04→14:49)
[2025-07-17] MEDS ORDERED: MAGNESIUM SULFATE 1 GM/2 ML VIAL ONE ×3 (12:04→14:30)
[2025-07-17] MEDS ORDERED: ROCURONIUM BROMIDE 50 MG/5 ML SYR ONE ×2 (12:05→12:34)
[2025-07-17] MEDS ORDERED: LIDOCAINE HCL 2% 5 ML SDV ONE ×3 (12:05→14:30)
[2025-07-17] MEDS ORDERED: SODIUM CHLORIDE 0.9% 40 ML IV ONE ×4 (12:07→14:48)
[2025-07-17] MEDS ORDERED: ACETAMINOPHEN 1,000 MG/100 ML VIAL ONE (12:09)
[2025-07-17] MEDS ORDERED: VASOPRESSIN 20 UNITS/ML VIAL ONE (13:00)
[2025-07-17] MEDS ORDERED: SEVOFLURANE 250 ML BTL INH ONE (14:29)
[2025-07-17] MEDS ORDERED: Ropivacaine HCl 0.5% 30 ML VIAL ONE (14:48)
[2025-07-17] MEDS ORDERED: SUGAMMADEX SODIUM 200 MG/2 ML ML ONE (15:04)
[2025-07-17] MEDS ORDERED: HYDROmorphone HCL 1 MG/ML SYR IV PRN (15:15)
[2025-07-17] MEDS ORDERED: NALOXONE HCL 0.4 MG SYR IV PRN (15:15)
[2025-07-17] MEDS ORDERED: fentaNYL citrate 50 MCG/ML SDV IV PRN (15:15)
[2025-07-17] MEDS ORDERED: IBLOOD GLUCOSE TEST STRIP 1 EA TEST VI PRN (15:15)
[2025-07-17] MEDS ORDERED: KETOROLAC TROMETHAMINE 30 MG/ML VIAL IV PRN (15:15)
--- NOTE | 2025-07-17 15:27 | NUR ---
GOT REPORT FROM DAY SHIFT NURSE. PATIENT STILL DOWN IN SURGERY. IN ROOM WAITING.
--- NOTE | 2025-07-17 15:46 | NUR ---
ROOM IS CLEANED AND READY FOR PATIENT ONCE BACK FROM SURGERY.
--- NOTE | 2025-07-17 16:10 | NUR ---
07/17/25 1610 Silvia Umana 1543- PT ARRIVES TO DS VIA BED W/6L ON MASK IN PLACE. PT RESPIRATIONS SLIGHTLY AUDIBLE, HEAD ADJUSTED ON PILLOW. PT RESPONDS W/EYE OPENING TO TACTILE STIMULI. REPORT RECEIVED FROM ONI GARIBAY AND CLIFF JOHNSON. 1555-RUFUS SYKES AT BEDSIDE, PT SLIGHTLY OPENS EYES, BUT NO VERBAL RESPONSES AT THIS TIME. PT RESTING W/EYES CLOSED. RESPIRATIONS EVEN AND UNLABORED. OCCASIONAL AUDIBLE SNORE. 1605- PT VERBALIZES NO PAIN AT THIS TIME. PT RESPIRATIONS EVEN AND UNLABORED, TITRATED TO ROOM AIR.
[2025-07-17] MEDS ORDERED: LIDOCAINE 2% VISCOUS 6 ML SYR TOP ONE (16:15)
[2025-07-17] MEDS ORDERED: ACETAMINOPHEN 1,000 MG/100 ML VIAL IV PRN (16:15)
--- NOTE | 2025-07-17 16:46 | NUR ---
PATIENT BROUGHT TO THE FLOOR AT 1635 FROM SURGERY. 0/10 PAIN, DENIES NAUSEA. VITALS WNL. IV FLUIDS RUNNING. AT BEDSIDE. PATIENT TIRED BUT ALERT. PATIENT HAS A ISIDRO DRAIN, AND FREEMAN. FRESH WATER GIVEN TO PATIENT. CPOX ON, SCDS ON. DRESSINGS C/D/I.
--- NOTE | 2025-07-17 17:48 | NUR ---
VITALS DONE. PATIENT IN AND OUT OF SLEEPING. IV FLUIDS AND FLAGYL RUNNING. PATIENT STATES PAIN 8/10, MEDICATION GIVEN. ISIDRO DRAIN DRAINED. BED ALARM ON.
--- NOTE | 2025-07-17 18:07 | NUR ---
PATIENT UP HAVING CLEAR LIQUIDS. ICE PACK PLACED ON ABDOMEN. ISIDRO DRAINED AGAIN.
--- NOTE | 2025-07-17 20:49 | NUR ---
PATIENT SLEEPING ON SIDE. PATIENT GIVEN IV MEDICATION. DENIES PAIN. ISIDRO DRAINED.
--- NOTE | 2025-07-17 21:22 | NUR ---
PATIENT LAYING IN BED. PATIENTS VITAL SIGNS AND I&OS WERE DONE. CATHETER WAS EMPTIED. PATIENTS CALL LIGHT IS WITHIN REACH AND NO FURTHER NEEDS AT THIS TIME.
--- NOTE | 2025-07-17 21:48 | NUR ---
JUST IN TO CHECK ISIDRO DRAIN. PATIENT HAS RIGHT HIP PAIN AND WOULD LIKE ICE PACK. DENIES NEEDING PAIN MEDICATIONS OR NAUSEA MEDS. IV FLUIDS RUNNING. CPOX ON, SCDS ON AND RUNNING. FREEMAN IN. BED IN LOW POSITION. WATER AT BEDSIDE. BED ALARMS ON.
--- NOTE | 2025-07-17 23:11 | NUR ---
PATIENT SLEEPING, WOKE UP WHEN WALKED IN. CHECKED ISIDRO DRAIN. PATIENT HAS PAIN FROM THE BED BUT NOT PAIN FROM SURGERY. DENIES WANTING TO TAKE ANY MEDICATION.
--- NOTE | 2025-07-17 23:20 | EKG ---
[facility] [address] [facility] [place] [address] Signed Normal sinus rhythm Normal ECG No previous ECGs available Confirmed by Neida Haider MD () on 07/17/2025 11:20:07 PM Electronically Signed By: NEIDA HAIDER MD 07/17/252319 PATIENT NAME: HONEY REECE Electrocardiogram DATE OF : 52 PHYSICIAN: NEIDA HAIDER MD REPORT #: [id number] REPORT IS CONFIDENTIAL AND NOT TO BE RELEASED WITHOUT AUTHORIZATION
[2025-07-18] VITALS (10 sets, daily range): BP systolic 160–172; BP diastolic 75–85
--- NOTE | 2025-07-18 | NUR ---
CHECKED ISIDRO DRAIN, DOES NOT NEED EMPTIED AT THIS TIME. PATIENT SLEEPING, REGULAR RESPIRATIONS NOTED.
--- NOTE | 2025-07-18 01:32 | NUR ---
RECEIVED REPORT FROM TERRELL. PT WANTED TO GET OUT OF BED AND AMBULATE, CHRISTIAN MINISTRIES PROFESSOR ASSISTED PATIENT UP TO EDGE OF BED AND WALKED AROUND IN ROOM. PT C/O 08/04 PAIN TO ABDOMEN, PRN MORPHINE GIVEN - SEE JAN. ISIDRO DRAINED WITH 50ML SEROSANG FLUID. MIDLINE WITH 1 AREA OF SCANT BLOOD ON DRESSING. PT DENIES NAUSEA AT THIS TIME. IV FLUIDS INFUSING ORDERED. PT BACK IN BED, GOING TO DO A MEDITATION EXERCISE, LIGHTS TURNED DOWN. CALL LIGHT WITHIN REACH, BED ALARM ON FOR SAFETY.
--- NOTE | 2025-07-18 02:01 | NUR ---
FOLLOW-UP ON PAIN, PT IS SLEEPING SOUNDLY WITH EYES CLOSED, DID NO WAKEN WHEN THIS RN ENTERED ROOM. BED ALARM IN PLACE, ALLOWED TO SLEEP. CALL LIGHT WITHIN REACH.
--- NOTE | 2025-07-18 02:48 | NUR ---
PT CALL LIGHT ON, REQUESTING SOMETHING FOR PAIN. PAIN 6/10 AT THIS TIME, PT STATES NOT BAD BUT FEELS IT CREEPY UP. INCISION UNCHANGED. PRN MORPHINE GIVEN - SEE JAN. PT DENIES NAUSEA. CALL LIGHT WITHIN REACH, ALL PT CARE NEEDS MET, DENIES ANY OTHER NEEDS.
--- NOTE | 2025-07-18 05:32 | NUR ---
PATIENT IN BED AT THIS TIME. CARTOON DESIGNER CHARTED VITAL AND I&O'S. CALL LIGHT WITHIN REACH, NO FURTHER NEEDS.
--- NOTE | 2025-07-18 05:56 | NUR ---
PT C/O 6/10 PAIN PER REAL ESTATE LEGAL ASSISTANT, UPON ARRIVING TO ROOM, PT STATES HE ATTEMPTED TO SIT UP TO EAT HIS JELLO AND C/O 8/10 PAIN NOW. PRN MORPHINE GIVEN - SEE MAR. PT DENIES ANY FURTHER NEEDS AT THIS TIME. MIDLINE INCISION REMAINS UNCHANGED. MINIMAL ISIDRO OUTPUT. IV PUMP CLEARED AND NEW BAG IV FLUIDS HUNG. ALL PT CARE NEEDS MET, CALL LIGHT WITHIN REACH.
--- NOTE | 2025-07-18 08:44 | NUR ---
Patient awake, alert and oriented x3, no acute distress. Patient assisted to chair, 1PA with walker, tolerates ambulation well. Patient reports sleeping well last night. Patient reports tolerable 2/10 lower abdominal pain, no nausea. Patient denies passing flatus. Hypoactive bowel tones noted x4 quadrants. IV offirmev 1000mg admin at this time for pain. Chair alarm intact.
--- NOTE | 2025-07-18 09:23 | NUR ---
HOURLY ROUNDING. RN AT BEDSIDE NOTIFIED BLOOD PRESSURE BEING HIGH. CALL LIGHT PLACED WITHIN REACH, NO REQUEST FROM PATIENT AT THIS TIME
--- NOTE | 2025-07-18 10:19 | NUR ---
Patient resting in bed, eyes closed, respirations non labored. IV fluids infusing per order. Bed alarm intact, call light within reach.
--- NOTE | 2025-07-18 11:21 | NUR ---
Patient ambulated in hallway, tolerated well 1PA with walker. Patient reports 6/10 abdominal pain post walk, admin morphine 4mg iv at this time. Patient denies nausea. ISIDRO emptied 55ml of serosang drainage. Patient back to bed, alarm intact. No further needs, call light within reach.
[2025-07-18] MEDS ORDERED: MORPHINE SULFATE 4 MG/ML VIAL IV PRN (13:00)
--- NOTE | 2025-07-18 13:13 | NUR ---
HOURLY ROUNDING. PATIENT SITTING IN RECLINER CHAIR VISITING WITH HIS . NO REQUEST FROM PATIENT AT THIS TIME. CALL HAS BEEN PLACED WITHIN REACH
[2025-07-18] MEDS ORDERED: KETOROLAC TROMETHAMINE 15 MG/ML VIAL IV PRN (14:15)
--- NOTE | 2025-07-18 14:35 | NUR ---
Admin toradol 15mg iv for reports of 2/10 abdominal pain.
--- NOTE | 2025-07-18 14:54 | NUR ---
Ice chips provided to patient. Patient awake, no distress. Call light within reach.
--- NOTE | 2025-07-18 16:54 | NUR ---
Patient resting, eyes closed, respirations non labored. Patient has no notable distress. Bed alarm intact.
--- NOTE | 2025-07-18 17:22 | NUR ---
RECIEVED REPORT FROM RYDER. PATIENT IS RESTING WITH EYES CLOSED, DID NOT WAKEN WITH THIS RN ENTERED ROOM. IV FLUIDS INFUSING ORDERED. RESPIRATIONS EVEN/UNLABORED. CALL LIGHT IS WITHIN REACH. ALL PT CARE NEEDS MET AT THIS TIME, PT ALLOWED TO REST.
--- NOTE | 2025-07-18 18:10 | NUR ---
HOURLY ROUNDING. PATIENT LAYING IN BED, NURSE NOTIFIED HIGH BLOOD PRESSURE. PATIENT JUST WOKE FROM A LONG NAP
--- NOTE | 2025-07-18 19:33 | NUR ---
REPORT RECEIVED FROM ALEX MARTINEZ. pt RESTING IN BED AWAKE. BED ALARM ON. IVF INFUSING WNL. pt DENIES PAIN. DENIES ANY NEEDS AT THIS TIME. CALL LIGHT IN REACH.
--- NOTE | 2025-07-18 21:36 | NUR ---
FREEMAN BAG EMPTIED. FREEMAN CARE PERFORMED.
--- NOTE | 2025-07-18 21:40 | NUR ---
pt AWAKE RESTING IN BED. RATES PAIN 1/10 IN ABDOMEN, PAINFUL WITH MOVEMENT. REPOSITIONS SELF HIGHER IN BED. PRN OFIRMEV ADMINSITERED. ICE CHIPS PROVIDED. ASSESSMENT COMPLETE. ABDOMEN DISTENDED, SOFT, NON-TENDER WITH PALPATION. BOWEL TONES ACTIVE. pt REPORTS FLATUS. ISIDRO DRAIN EMPTIED, SS FLUID. FREEMAN DRAINING. CALL LIGHT AND PERSONAL SUPPLIES WITHIN REACH.
[2025-07-19] VITALS (10 sets, daily range): BP systolic 141–174; BP diastolic 76–94
--- NOTE | 2025-07-19 01:05 | NUR ---
CHECKED ON pt. RESTING IN BED ON LEFT SIDE WITH EYES CLOSED. BREATHING UNLABORED. NO DISTRESS NOTED.
--- NOTE | 2025-07-19 02:58 | NUR ---
pt RESTING IN BED WITH EYES CLOSED. BREATHING EQUAL AND UNLABORED. BED ALARM ON.
--- NOTE | 2025-07-19 04:05 | NUR ---
CHECKED ON Pt. RESTING IN BED WITH EYES CLOSED, BREATHING UNLABORED. BED ALARM ON.
[2025-07-19 05:29] LABS: BASOPHILS 0.1 % (0.2-1.2); EOSINOPHILS 0 % (0.8-7.0); LYMPHOCYTES 5.8 % (21.8-53.1); MCH 32.9 PG (25.7-32.2); MCHC 33.7 g/dL (32.3-36.5); MCV 97.7 fL (79.0-92.2); MONOCYTES 7.0 % (5.3-12.2); NEUTROPHILS 86.7 % (34.0-67.9); RBC 3.89 M/uL (4.63-6.08)
[2025-07-19 05:43] LABS: GLOMERULAR FILTRATION RATE,EST 93.0 mL/min (>60); UREA NITROGEN 15.0 mg/dL (7-18)
--- NOTE | 2025-07-19 06:19 | NUR ---
pt AWAKE WHEN RN ENTERS ROOM. SCHEDULED ANTIBIOTIC ADMINISTERED. pt COMPLAINS OF 4/10 ABDOMINAL PAIN AND 6/10 BACK PAIN. PRN TORADOL ADMINISTERED. ABD ASSESSMENT COMPLETE. ISIDRO DRAIN EMPTIED 75 MLS SS FLUID. FREEMAN EMPTIED. 1PA SBA WITH FWW TO AMBULATE IN HALLWAY TO BACK NURSES STATION AND BACK TO ROOM. pt COMPLAINS OF RIGHT LEG WEAKNESS WITH AMBULATION. REQUESTS PT CONSULT, SEES PT 1/WK CURRENTLY. UP TO CHAIR. CALL LIGHT IN REACH.
--- NOTE | 2025-07-19 07:24 | NUR ---
ZEYNEPNIMICHELLE REPORT RECIEVED FROM ALEX PEREIRA. PT LAYING IN BED WITH EYES CLOSED CHEST RISE EQUAL BILAT AT THIS TIME, PT WAS ABLE TO PASS GAS LAST NIGHT FOR THE FIRST TIME AND HAS CALL LIGHT IN REACH IF NEEDED.
--- NOTE | 2025-07-19 09:05 | NUR ---
HOURLY ROUNDING. PATIENT REPORTS BEING REALLY TIRED. NOTICED HIS URINE IS A DIFFERENT COLOR TODAY, MORE DARKER. CALL LIGHT HAS BEEN PLACED WITHIN REACH
--- NOTE | 2025-07-19 09:25 | NUR ---
IV ABX COMPLETE. LR@ 85 RESUMED.
--- NOTE | 2025-07-19 10:13 | NUR ---
PT LAYIGN IN BED AT THIS TIME, PT HAS NO CONCERNS OF PAIN AT THIS TIME AND HAS CALL LIGHT IN REACH IF NEEDED.
--- NOTE | 2025-07-19 10:56 | NUR ---
INTO SEE PATIENT. PATIENT TO GO HOME WITH WHEN MEDICALLY CLEARED FOR DISCHARGE. NO FUTHER CM NEEDS.
--- NOTE | 2025-07-19 11:43 | NUR ---
PT LAYING IN BED ON PHONE, PT DENIES ANY CURRENT NEEDS AND DENIES PAIN AT THIS TIME CALL LIGHT IN REACH.
--- NOTE | 2025-07-19 13:14 | NUR ---
HOURLY ROUNDING.PATIENT SITTING INR ECLINER CHAIR, NURSE IS AT BEDSIDE. PATIENT REQUEST HAVE HIS LEFT FOOT ELEVATED ON A PILLOW, WAFFLE SEAT WAS GIVEN. NO FURTHER REQUEST FROM PATIENT AT THIS TIME
--- NOTE | 2025-07-19 13:20 | NUR ---
PT SITTING UP IN CHAIR, PT GIVEN AN EXTRA PILLOW AND PT REQUESTED OFERMEV FOR PAIN AT THIS TIME CALL LIGHT IN REACH IF NEEDED, PT DENEIS ANY OTHER CONCERNS.
--- NOTE | 2025-07-19 13:22 | NUR ---
PT NOT AVAILABLE FOR VISIT. PROVIDED PRAYER.
[2025-07-19] MEDS ORDERED: ACETAMINOPHEN 500 MG TAB PO PRN (14:00)
[2025-07-19] MEDS ORDERED: IBUPROFEN 600 MG TAB PO PRN (14:00)
[2025-07-19] MEDS ORDERED: CIPROFLOXACIN 500 MG TAB PO SCH (14:00)
--- NOTE | 2025-07-19 15:05 | NUR ---
PT SITTING UP IN BED, PT FREEMAN CATH REMOVED AND PT TOLERATED WELL. FREEMAN REMOVED WNL AND NO REDNESS PRESENT, PT HAS CALL LIGHT IN REACH AND IS CURRENTLY DUE TO VOID.
--- NOTE | 2025-07-19 15:40 | NUR ---
PATIENT CALLED TO USE URINAL. THIS HYDRAULIC LIFT DRIVER IN TO ASSIST PATIENT. PATIENT STOOD AT BEDSIDE AND USED URINAL, SBA FWW. VOIDED 300 mL, RN NOTIFIED. PATIENT BACK TO BED, IN ROOM. CALL LIGHT IN REACH. NO FURTHER NEEDS AT THIS TIME.
--- NOTE | 2025-07-19 17:04 | NUR ---
PATIENT GIVEN 15MG OF IV TORADOL FOR 8/10 ABD PAIN. PATIENT GIVEN PO FLAGYL WITH SALTINE CRACKERS AND WATER. PATIENT IS AWARE THAT HE MAY ADVANCE TO FULL LIQUID IF TOLERATING CLEARS. DR. HOOPER IN ROOM BRIEFLY TO CHECK ON PATIENT.
--- NOTE | 2025-07-19 17:53 | NUR ---
HOURLY ROUNDING. PATIENT SITTING UP IN BED, HE MENTIONS PASSING GAS BUT NOT HAVING A BM. URINAL HAS BEEN EMPTIED. PATIENT IS JUST NOW STARTING TO EAT AT HIS TRAY. NO REQUEST FROM PATIENT CALL LIGHT HAS BEEN PLACED WITHIN REACH
--- NOTE | 2025-07-19 18:40 | NUR ---
PT ASSISTED TO THE BATHROOM 1PA FWW PT TOLERATED WELL AND HAS NO CONCERNS, PT CONTINUES TO PASS GAS BUT NO BM YET, PT RETURNED TO BED CALL LIGHT IN REACH.
--- NOTE | 2025-07-19 19:15 | NUR ---
REPORT RECEIVED FROM IVETH JOHNSON. pt RESTING IN THE BED. BOARD UPDATED. pt REQUEST TO GO ON A WALK. THIS RN DICUSSED PLAN WITH pt TO GO A LITTLE LATER. pt DENIES ANY OTHER NEEDS AT THIS TIME. CALL LIGHT WITHIN REACH.
[2025-07-19] MEDS ORDERED: FAMOTIDINE 20 MG TAB PO SCH (21:00)
--- NOTE | 2025-07-19 21:45 | NUR ---
ASSESSMENT AND VITAL SIGNS DONE. pt UP TO THE BR, SBA WITH FWW. pt ACTECOTE HAS MINIMAL DRAINAGE OTHER SMITH DRY AND INTACT. BANDAGE AROUND ISIDRO DRAIN SATURATED. THIS RN CHANGED DRESSING. ISIDRO EMPTIED BY GENERAL MANAGER. WATER REFRESHED. IV ASSESSED, WNL. pt DENIES ANY OTHER NEEDS AT THIS TIME. CALL LIGHT WITHIN REACH. IVF INFUSING PER ORDER.
--- NOTE | 2025-07-19 22:30 | NUR ---
pt CALLED TO USE THE BR, SBA WITH FWW. pt BACK TO BED. pt DENIES ANY OTHER NEEDS AT THIS TIME. CALL LIGHT WITHIN REACH.
--- NOTE | 2025-07-19 23:50 | NUR ---
PATIENT'S CALL LIGHT ANSWERED. SBA FOR TUBINGS MANAGEMENT. PATIENT UP TO USE THE RESTROOM USING WALKER TO VOID 200ML CLEAR YELLOW URINE IN THE URINAL. PATIENT IS BACK IN BED. BED ALARM ON FOR SAFETY. NO FURTHER NEEDS AT THIS TIME.
--- NOTE | 2025-07-19 23:51 | NUR ---
pt CALLED TO USE THE BR. pt SBA WITH FWW. COSMETICS SUPERVISOR ASSISTED pt. pt DENIES ANY OTHER NEEDS AT THIS TIME. CALL LIGHT WITHIN REACH. BED ALARM ON.
[2025-07-20] VITALS (7 sets, daily range): BP systolic 142–167; BP diastolic 71–86
--- NOTE | 2025-07-20 01:10 | NUR ---
In with pt in response to call light to use the bathroom. SBA as pt used FWW to ambulate into the bathroom to use the urinal. urinal emptied of 350ml clear yellow urine. Pt ambulated back to bed, SBA with FWW. Warm blanket provided. Primary RN in with new bag of fluids in response to IV Pump alarming infusion complete. Bed alarm on. Side rails up, call light in reach.
--- NOTE | 2025-07-20 02:26 | NUR ---
pt RESTING IN THE BED LOOKING AT HIS PHONE. pt DENIES ANY NEEDS AT THIS TIME. CALL LIGHT WITHIN REACH.
--- NOTE | 2025-07-20 03:49 | NUR ---
pt RESTING IN THE BED WITH EYES CLOSED. RR EVEN ADN UNLABORED. CALL LIGHT WITHIN REACH.
--- NOTE | 2025-07-20 06:34 | NUR ---
pt RESTED THROUGH OUT THE NIGHT. pt SBA TO THE BR WITH FWW. IVF INFUSING PER ORDER. SCHEDULED MEDS ADMINISTERED. pt MIDLINE INCISION HAS MINIMAL OLD SHADOWING ON IT NO NEW DRAINAGE AT THIS TIME. pt ISIDRO DRESSING CHANGED DUE TO SATURATION AND pt REQUEST. NEW DRESSING HAS MINIMAL SS DRAINAGE AT THIS TIME. NO OTHER NEEDS AT THIS TIME.
--- NOTE | 2025-07-20 07:13 | NUR ---
VERBAL REPORT RECEIVED FROM ALEX GOODMAN. PT RESTS IN BED AWAKE AND ALERT, NO REQUESTS AT THIS TIME.
--- NOTE | 2025-07-20 08:37 | NUR ---
HOURLY ROUNDING. PATIENT SITTING IN BED, CALL LIGHT PLACED WITHIN REACH. ASSISTED PATIENT TO THE BATHROOM AND WITH AM CARE. NO FURTHER REQUEST FROM PATIENT BOARD HAS BEEN UPDATED
[2025-07-20] MEDS ORDERED: IBUPROFEN 600 MG TAB PO PRN (09:30)
[2025-07-20] MEDS ORDERED: ACETAMINOPHEN 500 MG TAB PO PRN (09:30)
--- NOTE | 2025-07-20 09:33 | NUR ---
HOURLY ROUNDING. VITALS ARE COMPLETED, PATIENTIS NOW IN A SHOWER, CALL LIGHT IS IN REACH
--- NOTE | 2025-07-20 09:41 | NUR ---
CURRENTLY IN THE SHOWER. PLANNING TO DC TO HOME WHEN MEDICALLY READY. NO CM NEEDS NOTED.
--- NOTE | 2025-07-20 10:06 | NUR ---
PATIENT NEEDED ASSITANCE WITH ALIDA OHARA AFTER SHOWER. I PROVIDED THE PRODUCTS TO DO A MOUTH RINSE. PATIENT IS BACK IN BED WITH A WARM BLANKET AND FRESH SOCKS. CALL LIGHT WITHIN REACH AND NO FURTHER NEEDS AT THIS TIME.
--- NOTE | 2025-07-20 12:16 | NUR ---
PHYSCIAL THERAPY IN WORKING WITH PT.
--- NOTE | 2025-07-20 12:24 | PATH ---
[facility] [address], [place] [address] Signed SPECIMEN(S): A SPLENIC FLEXURE COLON BIOPSY SPECIMEN SOURCE: A. SPLENIC FLEXURE COLON BIOPSY CLINICAL HISTORY: Sigmoid volvulus FINAL PATHOLOGIC DIAGNOSIS: Splenic flexure colon biopsy: - Benign colonic mucosa with mucosal hemorrhage, negative for pathologic inflammation or epithelial dysplasia. JVR:[id number] MICROSCOPIC EXAMINATION: Histologic sections of all submitted blocks are examined by light microscopy. These findings, together with the gross examination, support the pathologic diagnosis. GROSS DESCRIPTION: The specimen, labeled and designated "Sravan, splenic flexure colon biopsy," is received in formalin and consists of two reilly soft tissue fragments, ranging from 0.4-0.5 cm. Entirely submitted in (A1). VB (under the direct supervision of a pathologist) The Gross Description was prepared using a voice recognition system. The report was reviewed for accuracy; however, sound-alike word errors, addition and/or deletions may occur. If there is any question about this report, please contact Client Services. PERFORMING LABORATORY: Technical component was performed by [facility], [address] [place] [id number] (CLIA# [id number]). Professional interpretation was performed by [facility], [address] [place] [id number] (CLIA#: [id number]). Diagnostician: Nilo Good MD Pathologist Electronically Signed 07/20/2025 PATIENT NAME: HONEY REECE PATHOLOGY DATE OF : 52 REPORT #: [id number] PHYSICIAN: TOBY PATHOLOGY PCP: JUAQUIN PERALTA MD REPORT IS CONFIDENTIAL AND NOT TO BE RELEASED WITHOUT AUTHORIZATION [address] [facility] [place] [place] [address] Signed Copies: ~ PATIENT NAME: HONEY REECE PATHOLOGY DATE OF : 52 REPORT #: [id number] PHYSICIAN: TOBY PATHOLOGY PCP: JUAQUIN PERALTA MD REPORT IS CONFIDENTIAL AND NOT TO BE RELEASED WITHOUT AUTHORIZATION
--- NOTE | 2025-07-20 13:18 | NUR ---
HOURLY ROUNDING. PATIENT WAS A SBA TO THE BATHROOM WITH US8ING A FWW. NO REQUEST FROM PATIENT AT THIS TIMW
--- NOTE | 2025-07-20 13:36 | NUR ---
VISITED DURING SPIRITUAL CARE ROUNDS. PT APPEARED TO BE SLEEPING. DID NOT DISTURB. PROVIDED PRAYER.
--- NOTE | 2025-07-20 15:20 | NUR ---
ISIDRO DRAIN EMPTIED, OUTPUT IS PINK TINGED SEROUS DRAINAGE. DRESSING TO MID-ABDOMEN IS C/D/I. ABDOMEN IS SOFT AND FLAT. PT REPORTS FLATUS. PT ATTEMPTED BM, NO RESULTS. VOIDING QUANTITY SUFFICIENT. PT AMBULATES IN HALLWAY WITH FWW AND SBA, TOLERATES THIS WELL.
--- NOTE | 2025-07-20 17:39 | NUR ---
PT SITS UP IN RECLINER, EATS DINNER, CALL LIGHT IN REACH. NO REQUESTS.
--- NOTE | 2025-07-20 18:23 | NUR ---
HOURLY ROUNDING. PATIENT LAYING IN BED, NO REQUEST FROM PATIENT AT THIS TIME. CALL LIGHT HAS BEEN PLACED WIHTIN REACH
--- NOTE | 2025-07-20 19:20 | NUR ---
REPORT RECEIVED FROM AVANI JOHNSON. BOARD UPDATED. pt IN RM. pt DENIES ANY OTHER NEEDS AT THIS TIME. CALL LIGHT WITHIN REACH.
--- NOTE | 2025-07-20 21:40 | NUR ---
ASSESSMENT DONE. pt C/O 02/01 PAIN. PRN PAIN MEDS ADMINISTERED. pt UP TO THE BR TO BRUSH HIS TEETH AND USE THE URINAL. pt SBA WITH FWW. IV ASSESSED, WNL. MIDLINE INCISION HAS MINIMAL SHADOWING WITH NO NEW DRAINAGE. ISIDRO DRAIN DRESSING HAS SS DRAINAGE OTHER SMITH INTACT. pt BACK TO BED. pt DENIES ANY OTHER NEEDS AT THIS TIME. CALL LIGHT WITHIN REACH.
--- NOTE | 2025-07-20 22:42 | NUR ---
BED ALARM SOUNDING, pt REACHING FOR GLASSES TO GET OUT OF BED TO VOID. SBA WITH FWW TO STAND FOR VOID. pt BACK IN BED. BED ALARM ON. pt DENIES ADDITIONAL NEEDS.
--- NOTE | 2025-07-20 23:25 | NUR ---
pt RESTING IN THE BED WITH EYES CLOSED. RR EVEN AND UNLABORED. CALL LIGHT WITHIN REACH.
--- NOTE | 2025-07-20 23:55 | NUR ---
PATIENT CALLED. SBA TO THE BATHROOM TO VOID 225ML CLEAR YELLOW URINE IN THE URINAL. PATIENT IS BACK IN BED. NO FURTHER NEEDS EXPRESSED. BED ALARM ACTIVATED FOR SAFETY.
--- NOTE | 2025-07-21 01:11 | NUR ---
pt RESTING IN THE BED WITH EYES CLOSED. RR EVEN AND UNLABORED. CALL LIGHT WITHIN REACH.
--- NOTE | 2025-07-21 01:26 | NUR ---
pt RESTING IN THE BED LOOKING AT HIS PHONE. pt DENIES ANY OTHER NEEDS AT THIS TIME. CALL LIGHT WITHIN REACH.
--- NOTE | 2025-07-21 03:15 | NUR ---
pt RESTING IN THE BED WITH EYES CLOSED. RR EVEN AND UNLABORED. CALL LIGHT WITHIN REACH.
[2025-07-21 04:31] VITALS: BP 131/76
--- NOTE | 2025-07-21 06:39 | NUR ---
pt ASSESSMENT AND VITAL SIGNS DONE. pt UP TO THE BR. pt BACK TO BED. WATER REFRESHED. pt C/O 03/04 PAIN. PRN PAIN MEDS ADMINISTERED. pt DENIES ANY OTHER NEEDS AT THIS TIME. CALL LIGHT WITHIN REACH.
--- NOTE | 2025-07-21 07:29 | NUR ---
VERBAL REPORT RECEIVED FROM ALEX GOODMAN. PT RESTS IN BED WITH EYES CLOSED, RESP EVEN AND UNLABORED.
--- NOTE | 2025-07-21 07:30 | NUR ---
PATIENT IN BED SLEEPING AT THIS TIME. BALANCE WHEEL HAND FILER CHARTED HOURLY ROUNDS. CALL LIGHT WITHIN REACH, NO FURTHER NEEDS.
--- NOTE | 2025-07-21 07:40 | NUR ---
PATIENT IN CHAIR AT THIS TIME. NAIL SPECIALIST ASSISTED PATIENT TO BATHROOM AND THEN TO CHAIR. CALL LIGHT WITHIN REACH, NO FURTHER NEEDS.
--- NOTE | 2025-07-21 08:36 | NUR ---
PT SITS UP IN RECLINER, EATS BREAKFAST, TOELRATES THIS WELL. REPORTS PAIN TOLERABLE AT THIS TIME. CALL LIGHT IN REACH, NO REQUESTS.
[2025-07-21 10:05] VITALS: BP 132/67
--- NOTE | 2025-07-21 10:06 | NUR ---
PATIENT IN BED AT THIS TIME. ROLLER ENGRAVER CHARTED VITALS AND I&O'S. CALL LIGHT WITHIN REACH, NO FURTHER NEEDS.
--- NOTE | 2025-07-21 10:26 | NUR ---
DR. HOOPER INTO SEE PT. DR. HOOPER REMOVES DRAIN AND DRESSES SITE.
--- NOTE | 2025-07-21 10:42 | NUR ---
PATIENT ALERT AND ORIENTED IN BED. NOT YET READY FOR DC. PT RECOMMONDING HOME HEALTH AND WALKER. DR. HOOPER NOTIFIED AND ORDERS RECEIVED FOR THOSE. PATIENT CHOICES PROVIDED FOR HOME HEALTH AND DME COMPANIES. PREFERS [facility] AND [facility].
--- NOTE | 2025-07-21 11:08 | NUR ---
ORDERS, NOTES, FACESHEET FAXED TO [facility].
--- NOTE | 2025-07-21 11:11 | NUR ---
PT RECEIVES TYLENOL AND MOTIRIN ORDERED FOR 5/10 ABDOMINAL PAIN, SEE EMAR.
--- NOTE | 2025-07-21 12:51 | NUR ---
PT UP TO TOILET, PASSES SECOND BM OF THE DAY. PT BACK TO BED WITH FWW, TOLERATES ACTIVITY WELL.
[2025-07-21 13:59] VITALS: BP 134/70
--- NOTE | 2025-07-21 14:01 | NUR ---
PATIENT IN BED AT THIS TIME. TOBACCO WEIGHER CHARTED VITALS AND I&O'S. TOBACCO WEIGHER OFFERED SHOWER TO PATIENT, PATIENT ACCPETED. PATIENT TO SHOWER @1530. CALL LIGHT WITHIN REACH, NO FURTHER NEEDS.
[2025-07-21] MEDS ORDERED: DULOXETINE HCL 60 MG CAP PO SCH (14:06)
--- NOTE | 2025-07-21 14:44 | NUR ---
PATIENT IN BED AT THIS TIME. GROCERY CLERK SELLING ASSISTED PATIENT WALKING 3 LAPS AROUND HALLS. CALL LIGHT WITHIN REACH, NO FURTHER NEEDS AT THIS TIME.
--- NOTE | 2025-07-21 15:36 | NUR ---
VERBAL REPORT PROVIDED TO ALEX HYDE.
--- NOTE | 2025-07-21 15:45 | NUR ---
REPORT RECEIVED FROM AVANI ECKERT RN.
--- NOTE | 2025-07-21 16:21 | NUR ---
PATIENT IN CHAIR AT THIS TIME. FIRE TECHNICIAN SET PATIENT UP FOR SHOWER, PATIENT ABLE TO SHOWER INDEPENDENTLY WITH FIRE TECHNICIAN IN ROOM. CALL LIGHT WITHIN REACH, NO FURTHER NEEDS AT THIS TIME.
--- NOTE | 2025-07-21 16:45 | NUR ---
PT SITTING UP IN CHAIR AFTER HIS SHOWER. NO REQUESTS AT THIS TIME. CALL LIGHT WITHIN REACH.
--- NOTE | 2025-07-21 17:39 | NUR ---
PT SITTING UP IN CHAIR EATING DINNER WITH IN ROOM VISITING. PAIN MEDS GIVEN REQUESTED AND ORDERED FOR ABD PAIN 01/04. CALL LIGHT WITHIN REACH.
[2025-07-21 17:46] VITALS: BP 148/90
--- NOTE | 2025-07-21 19:20 | NUR ---
REPORT RECEIVED FROM MARY ELLEN JOHNSON. pt UP TO THE BR WITH FWW AND FINAL FINISHER. BOARD UPDATED. pt DENIES ANY OTHER NEEDS AT THIS TIME. CALL LIGHT WITHIN REACH.
[2025-07-21 20:54] VITALS: BP 149/80
--- NOTE | 2025-07-21 20:55 | NUR ---
AVIATION SUPPORT EQUIPMENT REPAIRER OBTAINED VITALS AND I&O. PT STATES NO NEEDS AT THIS TIME. CALL LIGHT WITHIN REACH.
[2025-07-21 21:00] VITALS: BP 149/80
--- NOTE | 2025-07-21 21:50 | NUR ---
ASSESSMENT AND VITAL SIGNS DONE. pt UP TO THE BR. NEW BRIEF ON pt. SCHEDULED MED ADMINISTERED. pt DENIES ANY PAIN AT THIS TIME. MIDLINE INCISION WITH SERI STRIPS CDI. MINIMAL DRAINAGE FROM OLD ISIDRO DRAIN SITE. BOWEL TONES ACTIVE. pt DENIES ANY OTHER NEEDS AT THIS TIME. CALL LIGHT WITHIN REACH.
--- NOTE | 2025-07-21 23:25 | NUR ---
pt RESTING IN THE BED WITH EYES CLOSED. RR EVEN AND UNLABORED. CALL LIGHT WITHIN REACH.
--- NOTE | 2025-07-22 01:46 | NUR ---
pt RESTING IN THE BED WITH EYES CLOSED. RR EVEN AND UNLABORED. CALL LIGHT WITHIN REACH.
--- NOTE | 2025-07-22 03:30 | NUR ---
pt RESTING IN THE BED WITH EYES CLOSED. RR EVEN AND UNLABORED. CALL LIGHT WITHIN REACH.
[2025-07-22 05:06] VITALS: BP 133/78
--- NOTE | 2025-07-22 05:15 | NUR ---
pt C/O 03/04 PAIN. PRN PAIN MEDS ADMINISTERED. WATER REFRESHED. pt DENIES ANY OTHER NEEDS AT THIS TIME. CALL LIGHT WITHIN REACH.
--- NOTE | 2025-07-22 07:15 | NUR ---
MORNING ASSESSMENT COMPLETE. PT IS AWAKE IN BED, REQUESTING TO GO FOR A WALK. WILLING TO WAIT TILL AFTER REPORT. NO OTHER NEEDS AT THIS TIME. CALL LIGHT IN REACH.
--- NOTE | 2025-07-22 07:54 | NUR ---
PT IS WALKING THE MED SURG UNIT WITH ALEX MARTINEZ
--- NOTE | 2025-07-22 09:32 | NUR ---
INTO SEE PATIENT. IM LETTER COMPLETED. PATIENT HOPING TO D/C TODAY. HOME HEALTH ORDERS COMPLETED. NO OTHER CM NEEDS AT THIS TIME.
--- NOTE | 2025-07-22 09:45 | NUR ---
pt in physical therapy.
[2025-07-22 10:00] VITALS: BP 136/73
[2025-07-22] MEDS ORDERED: IBUPROFEN600 MG PO (10:25)
[2025-07-22] MEDS ORDERED: ACETAMINOPHEN500 MG PO (10:25)
[2025-07-22] MEDS ORDERED: FAMOTIDINE20 MG PO (10:26)
--- NOTE | 2025-07-22 10:41 | NUR ---
[facility]PAT[facility]
--- NOTE | 2025-07-22 10:44 | NUR ---
MORNING ASSESSMENT COMPLETE. PT IS CONCERNED ABOUT NOT HAVING A WALKER WHEN HE GETS HOME. SPOKE WITH CASE MANAGEMENT, THEY ARE WORKING ON THE WALKER. PT DENIES NEEDS AT THIS TIME. CALL LIGHT IN REACH
--- NOTE | 2025-07-22 10:48 | NUR ---
[facility] CON[facility]. THEY WILL BRING WALKER UP AROUND 12.
--- NOTE | 2025-07-22 11:55 | NUR ---
pt given pain medication per request for 3/10 abd and r hip pain. denies needs at this time. pt updated on poc with walker and satisfied. call light in reach
--- NOTE | 2025-07-22 11:57 | NUR ---
PATIENT WAS IN HIS CHAIR AT THIS TIME, OUTREACH CLINICIAN CHARTED VITALS AND I&O'S, ASSISTED PATIENT TO THE RESTROOM, GOT FRESH ICE WATER AND A WARM BLANKET. CALL LIGHT WITH IN REACH AND NOTHING ELSE NEEDED AT THIS TIME.
[2025-07-22 13:00] VITALS: BP 144/74
--- NOTE | 2025-07-22 13:10 | NUR ---
PATIENT WAS IN HIS BED AT THIS TIME, POKER IN CHARTED VITALS, PATIENT IS STILL EATTING LUNCH AT THIS TIME. ASSISTED HIM TO THE RESTROOM AND BACK, GOT HIS CLOTHES SET OUT AND EVERYTHING PACKED UP AND READY TO GO WHEN HIS GET HERE. CALL LIGHT WITH IN REACH AND NOTHING ELSE NEEDED AT THIS TIME.
--- NOTE | 2025-07-22 13:36 | PATH ---
[facility] [address] [place], [place] [address] Signed SPECIMEN(S): A SIGMOID AND PROXIMAL RECTUM SPECIMEN(S): B ADDITIONAL PROXIMAL COLON SPECIMEN SOURCE: A. SIGMOID AND PROXIMAL RECTUM B. ADDITIONAL PROXIMAL COLON H [id number] CLINICAL HISTORY: Sigmoid volvus FINAL PATHOLOGIC DIAGNOSIS: A. Sigmoid and proximal rectum: - Large bowel mucosa with superficial epithelial necrosis, hemorrhage, and focally increased chronic inflammation; consistent with volvulus and mild ischemia - Negative for atypia or malignant neoplasm B. Additional proximal colon: - Segment of histologically unremarkable large bowel - Negative for atypia or malignant neoplasm BB MICROSCOPIC EXAMINATION: Histologic sections of all submitted blocks are examined by light microscopy. These findings, together with the gross examination, support the pathologic diagnosis. GROSS DESCRIPTION: A. The specimen, labeled and designated "Beti ReeceLien, sigmoid and proximal rectum," is received fresh and placed in formalin and consists of a 41.8 cm in length by 7.1 cm in circumference unoriented segment of previously open colon. The serosa is reilly-red and diffusely erythematous. Mucosa is reilly-pink and diffusely edematous with slight loss of mucosal folds. There is scant erythema of the mucosa occupying 10% of the specimen there are no discrete masses or polyps. There are no diverticula identified. Weaver Wire Loom sections are submitted as follows: Cassette Summary: (A1) unoriented margin #1 (A2) unoriented margin #2 (A3-A5) mucosa with erythematous mucosa in cassette A5 PATIENT NAME: HONEY REECE PATHOLOGY DATE OF : 52 REPORT #: [id number] PHYSICIAN: TOBY MALHOTRA PCP: JUAQUIN PERALTA MD REPORT IS CONFIDENTIAL AND NOT TO BE RELEASED WITHOUT AUTHORIZATION [facility] [address] [place], [place] [address] Signed B. The specimen, labeled and designated "Beti Reece., additional proximal colon," is received in formalin and consists of a 10.5 cm in length by 6.9 cm in circumference unoriented segment of previously opened colon. The serosa is reilly-pink and smooth with moderate amount of attached pericolonic fat. The mucosa is reilly-brown with intact mucosal folds. There are no discrete masses or lesions. No diverticuli are identified. Weaver Wire Loom sections are submitted as follows: Cassette Summary: (B1) unoriented margin #1 (B2) unoriented margin #2 (B3) mucosa AA (under the direct supervision of a pathologist) The Gross Description was prepared using a voice recognition system. The report was reviewed for accuracy; however, sound-alike word errors, addition and/or deletions may occur. If there is any question about this report, please contact Client Services. ADDITIONAL NOTES: Immunohistochemical and/or in situ hybridization studies if performed in this case included appropriate positive controls that reacted as expected. This test was developed and its performance characteristics determined by [facility]. It has not been cleared or approved by the U.S. Food and Drug Administration. The FDA has determined that such clearance or approval is not necessary. This test is used for clinical purposes. It should not be regarded as investigational or for research. [facility] is certified under the Clinical Laboratory Improvement Amendments of 1988 (CLIA) as qualified to perform high complexity clinical laboratory testing. PERFORMING LABORATORY: Technical component was performed by [facility], [address] [place] [id number] (CLIA# [id number]). Professional interpretation was performed by [facility] - [address] [place] [address] (CLIA#: [id number]). Diagnostician: Irvin Bowie MD Pathologist Electronically Signed 07/22/2025 PATIENT NAME: SHANELLHONEY PATHOLOGY DATE OF : 52 REPORT #: [id number] PHYSICIAN: TOBY MALHOTRA PCP: JUAQUIN PERALTA MD REPORT IS CONFIDENTIAL AND NOT TO BE RELEASED WITHOUT AUTHORIZATION [facility] [address] [place], [place] [address] Signed Copies: ~ PATIENT NAME: SHANELLHONEY PATHOLOGY DATE OF : 52 REPORT #: [id number] PHYSICIAN: TOBY PATHOLOGY PCP: JUAQUIN PERALTA MD REPORT IS CONFIDENTIAL AND NOT TO BE RELEASED WITHOUT AUTHORIZATION
--- NOTE | 2025-07-24 14:10 | OR ---
[facility] [address], [place] [address] Signed DATE OF OPERATION: 07/17/2025 SURGEON: Terry Hooper MD PREOPERATIVE DIAGNOSIS: Sigmoid volvulus, status post colonoscopic detorsion and decompression. POSTOPERATIVE DIAGNOSIS: Sigmoid volvulus, status post colonoscopic detorsion and decompression. PROCEDURE: Anterior resection of sigmoid colon with side-to-end coloproctostomy. ANESTHESIA: General endotracheal; Victorino Bustamante CRNA. ASSISTANTS: Katerine Jiménez, RN and Shirlene Gibson RN. ADDITIONAL ANESTHESIA: Postoperative bilateral TAP block. 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 A CT scan was performed which confirmed findings of massively dilated sigmoid consistent with sigmoid volvulus. The vascular pedicle was in a spiral twirling configuration concordant to the suspected sigmoid volvulus. The patient has had constipation problems for quite some time. He was admitted, fluid resuscitated and yesterday underwent colonoscopic decompression of the colon by me where he tolerated the procedure well and clinically recovered quite nicely. His white count is not elevated, and his presenting lactic acid was normal. Though he does not have the advantage of a full bowel prep, it was deemed inadvisable to perform a full and complete bowel prep at this point for high probability of recurrent sigmoid volvulus. I reviewed with the patient and his my recommendation of sigmoid resection despite not having full bowel prep; colonoscopy did allow for preparation to some degree and confirmed that there is no sign of ischemic change of the colon. The possibility of a diverting proximal loop ileostomy was discussed with them should anastomosis be considered hazardous, and an appropriate ileostomy site has been marked anticipating that possibility. He and his understand our plan of operation and Electronically Signed By: TERRY HOOPER MD 07/24/25 1410 PATIENT NAME: HONEY REECE OPERATIVE REPORT DATE OF : 52 REPORT #: [id number] PHYSICIAN: TERRY HOOPER MD PCP: JUAQUIN DUMONT MD REPORT IS CONFIDENTIAL AND NOT TO BE RELEASED WITHOUT AUTHORIZATION [facility] [address], [place] [address] Signed wished to proceed. FINDINGS: Indeed the sigmoid colon was quite markedly redundant and still rather dilated with air. The more proximal colon was essentially normal. Both proximal and distal segments including dilated upper and mid rectum were completely viable without ischemic change or even significant inflammation, only dilation. Resection included all of the redundant sigmoid, extending from the proximal sigmoid distalward to the mid to upper rectum. The side-to-end coloproctostomy was accomplished. Stool burden proximal in the proximal segment was not excessive, and I did not believe the patient would require a diverting loop ileostomy. A drain was placed of course. Other intraabdominal organs appeared normal. The gallbladder was palpably normal as was the liver. The omentum was normal as was the small bowel. Appendix was not remarkable. DESCRIPTION OF PROCEDURE: The patient was brought to the operating room, given a general endotracheal anesthetic. Preoperative antibiotics, ceftriaxone and Flagyl, had been given. Sequential compression device stockings were used. A Escobedo catheter was placed. The abdomen was clipped and prepared with a chlorhexidine solution and draped sterilely. An incision was made extending from above the umbilicus to the symphysis pubis essentially, and the abdomen entered. Upon entry into the abdominal cavity, egress of dilated colon was noted. It was quite air-filled, and although dilated, it was not ischemic by any means and not even particularly inflamed. Further opening of the abdomen allowed for delivery of a very redundant and dilated sigmoid colon with some dilation of the proximal and mid rectum as well. The left colon itself appeared to be nondilated at this point and certainly not inflamed or edematous. A Bookwalter retractor was used to isolate the small bowel to the right side of the abdomen. The sigmoid colon was completely nonfixed to the pelvic sidewall, no doubt contributing to the stretching of the mesentery and ultimately volvulus of it. The vascular pedicle was quite obvious, and although recent inflamed, did not appear thrombotic. Once the Bookwalter retractor was set up, the mesentery of the sigmoid colon and its dilated area up to a normal transition to normal left colon was incised, and sequential application of hemostats to the vascular pedicles undertaken. They were divided and ligated with 0 silk ties. The major vascular pedicles were doubly secured with 0 silk ties. A CANDE 60 stapling device was used to transect the colon that was nondilated and normal. Further dissection to the mid rectum was undertaken. Milking of the distal rectum proximal allowed air to be withdrawn into segment in question. Transection distally was proximally between the upper and mid rectum securing the vascular pedicle with 0 silk ties as before. The right angle bowel clamp was applied to the mid to upper Electronically Signed By: TERRY HOOPER MD 07/24/25 1410 PATIENT NAME: HONEY REECE OPERATIVE REPORT DATE OF : 52 REPORT #: [id number] PHYSICIAN: TERRY HOOPER MD PCP: JUAQUIN DUMONT MD REPORT IS CONFIDENTIAL AND NOT TO BE RELEASED WITHOUT AUTHORIZATION [facility] [address], [place] [address] Signed rectum after milking air back into the specimen to be resected and additional clamp applied above this, transecting the rectum, passing the specimen for pathology. Photographs were taken. Opening of the colon showed the mucosa to have no sign of infarction or other problem. Examination of the proximal segment showed some still excessive, probable sigmoid, and this was additionally excised, securing the mesentery, re-applying the CANDE 60 device to what is clearly the left colon. That segment was sent as additional proximal colon. Irrigation was undertaken. There was no sign of enteric leak or other problem. The stapled end of the left colon was oversewn with interrupted 3-0 silk sutures to avoid any "blowout." A tension-free anastomosis was then undertaken. A side-to-end coloproctostomy was undertaken in my standard technique of interrupted 3-0 silk suture. Isolating the operative site with laparotomy pads was undertaken prior to opening the bowel. The distal (rectal) segment was completely viable and had absolutely no stool burden at all. The more proximal segment had gelatinous covering of stool. This area after placing the back row of silk sutures and opening the colon itself was then cleansed with narrow sponge sticks with Betadine solution. Complete clearance of the mucoid stool was noted. Saline similar cleansing was undertaken. Anastomosis was completed in a 2-layer technique of interrupted 3-0 silk suture, it was completely viable, and the mesenteric defect secured with running 3-0 silk. Given the complete viability and lack of edema and inflammation of the proximal and distal segments, the diverting loop ileostomy was deemed unnecessary. Irrigation was undertaken after glove change of all operating members, and through a left lower quadrant stab incision, a 7 mm flat Bernard drain was placed down to the depths of the pelvis, not far from the anastomosis. Small bowel was returned to its anatomic configuration, and the omentum replaced over the abdominal contents. Palpation of the liver and gallbladder showed them to be normal. Stomach and transverse and left colon were normal also. Plans were then made for closure. The midline fascia was reapproximated with running bidirectional #1 PDS suture. Subcutaneous tissue was irrigated, and skin closed with running subcuticular 3-0 Vicryl. Steri-Strips were applied as was an Acticoat dressing. It is anticipated that the patient will be extubated in the operating room to be taken to the recovery room in good condition, having suffered no complication. Blood loss was 20 mL or less in aggregate. MD JOSE MANUEL Turner/BRAXTON Electronically Signed By: TERRY HOOPER MD 07/24/25 1410 PATIENT NAME: HONEY REECE OPERATIVE REPORT DATE OF : 52 REPORT #: [id number] PHYSICIAN: TERRY HOOPER MD PCP: JUAQUIN DUMONT MD REPORT IS CONFIDENTIAL AND NOT TO BE RELEASED WITHOUT AUTHORIZATION [facility] [address] [place] [id number] Signed /[id number] cc: Juaquin Dumont MD Copies: JUAQUIN DUMONT MD ~ Electronically Signed By: TERRY HOOPER MD 07/24/25 1410 PATIENT NAME: HONEY REECE OPERATIVE REPORT DATE OF : 52 REPORT #: [id number] PHYSICIAN: TERRY HOOPER MD PCP: JUAQUIN DUMONT MD REPORT IS CONFIDENTIAL AND NOT TO BE RELEASED WITHOUT AUTHORIZATION
--- NOTE | 2025-07-24 14:10 | DS ---
[facility] [address], [place] [address] Signed ADMISSION DATE: 07/16/2025 DISCHARGE DATE: 07/22/2025 REASON FOR ADMISSION: Acute sigmoid volvulus. 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 He presented to emergency room at approximately 3:30 in the morning, evaluated by Dr. Saba with recurrent abdominal pain. He had been seen in the preceding 24 hours emergency room with abdominal pain, which is of uncertain origin. He had a week's worth of constipation and clinical dehydration. He was hydrated and had recurrent abdominal pain once discharged and returning evaluated by Dr. Saba showing a CT scan finding consistent with a markedly distended abdomen, colonic air and findings consistent with sigmoid volvulus. He is admitted for further evaluation and care. PAST MEDICAL HISTORY: Notable for lumbosacral pain. He does have a nerve stimulator in for management of this. He is known to have aortic stenosis, but without exertional chest pain, dyspnea on exertion, or other issues. Other issues include gastroesophageal reflux, peripheral neuropathy, glaucoma, ADD, and radiculopathy. PERTINENT PHYSICAL EXAM: GENERAL: A large white man who looks to be nontoxic. NECK: Trachea is midline. CHEST: Clear. HEART: Regular without murmur. He had an ejection murmur concordant to underlying aortic stenosis history. ABDOMEN: Markedly distended but not particularly tender. EXTREMITIES: Show no clubbing, cyanosis, or edema. HOSPITAL COURSE: He was admitted and given fluid resuscitation. He underwent the following day decompressive colonoscopy. A biopsy was taken of the splenic flexure, which showed mucosal hemorrhage, but negative for pathologic inflammation. Decompression of the colon was afforded and he had much diminished distention. A rectal tube was not left in place. Mindful of the limitations of inability to do a bowel prep affectively and with some hazard of recurrent volvulus recommendation was made for sigmoid resection. On July 17, 2025, he did undergo resection of the sigmoid colon with a side-to-end coloproctostomy. The non-affected left colon did have some stool proximally, but at the Electronically Signed By: TERRY HOOPER MD 07/24/25 1410 PATIENT NAME: HONEY REECE DISCHARGE SUMMARY DATE OF : 52 REPORT #: [id number] PHYSICIAN: TERRY HOOPER MD PCP: JUAQUIN DUMONT MD REPORT IS CONFIDENTIAL AND NOT TO BE RELEASED WITHOUT AUTHORIZATION [facility] [address] [place] [id number] Signed site of anastomosis was cleansed with Betadine solution, avoiding enteric spillage and the rectum itself, though large, was essentially free of any residual stool. A drain was placed as well. His postoperative course was quite good overall. He did have a TAP block perioperatively for pain control. He did have some distention of first postoperative day, having initiated a limited clear liquid diet, was made n.p.o. for another day and then readvanced on his diet once flatus was more reliable. He had progressive improvement, advancing of his diet and the drain was in the pelvis was ultimately removed. He was transitioned from ceftriaxone, Flagyl antibiotic regimen to Cipro and Flagyl, but by the day of discharge will not require any more antibiotics. By time of discharge, he is ambulating with assistance of his walker given his underlying lumbosacral and radicular pain. The wound is healing well. Drain has been removed. DISCHARGE MEDICATIONS: 1. Ibuprofen 600 mg p.o. q.6 hours as needed for pain #60, Tylenol 1000 mg p.o. q.6 hours as needed for pain #60 and famotidine 20 mg p.o. q.12 hours #60 refill zero. He will continue his usual medications including vitamin B12 1000 mcg p.o. daily. 2. Vyvanse 20 mg p.o. daily, Senokot 8.6 mg daily as needed. 3. Tramadol 50 mg tablet taking only 1/4 tablet at bedtime for radicular pain. 4. Dorzolamide timolol eyedrops one drop left eye two times a day for glaucoma. 5. Duloxetine 60 mg p.o. daily. 6. Tizanidine 4 mg, 2 mg portion at bedtime for back spasm. 7. DSS 100 mg at bedtime. DISCHARGE DIAGNOSES: 1. Acute sigmoid volvulus, status post sigmoid resection with primary anastomosis without proximal diversion. 2. Chronic radiculopathy pain related to lumbar disease with a nerve stimulator in place. 3. Chronic constipation (likely to resolve). 4. Attention deficit disorder. 5. Possible reflux disease. MD JOSE MANUEL Turner/BRAXTON /[id number] Electronically Signed By: TERRY HOOPER MD 07/24/25 1410 PATIENT NAME: HONEY REECE DISCHARGE SUMMARY DATE OF : 52 REPORT #: [id number] PHYSICIAN: TERRY HOOPER MD PCP: JUAQUIN DUMONT MD REPORT IS CONFIDENTIAL AND NOT TO BE RELEASED WITHOUT AUTHORIZATION [facility] [address] [place] [address] Signed cc: Dr. Saba [facility] Dr. Abel Dumont Copies: ~ Electronically Signed By: TERRY HOOPER MD 07/24/25 1410 PATIENT NAME: HONEY REECE DISCHARGE SUMMARY DATE OF : 52 REPORT #: [id number] PHYSICIAN: TERRY HOOPER MD PCP: JUAQUIN DUMONT MD REPORT IS CONFIDENTIAL AND NOT TO BE RELEASED WITHOUT AUTHORIZATION
== END 2025-07-22 13:57 | disposition home health service (06) | DRG 330 ==
LOC: ED 03:15 → MS 03:16
PROVIDERS: Internal Medicine; ADMIT Surgery; ATTEND Surgery
PROC: 0D9N8ZZ Drainage of Sigmoid Colon, Via Natural or Artificial Opening Endoscopic (ICD-10-PCS; 2025-07-16)
PROC: 0DBL8ZX Excision of Transverse Colon, Via Natural or Artificial Opening Endoscopic, Diagnostic (ICD-10-PCS; 2025-07-16)
PROC: 0DBP0ZZ Excision of Rectum, Open Approach (ICD-10-PCS; 2025-07-17)
PROC: 0T9B70Z Drainage of Bladder with Drainage Device, Via Natural or Artificial Opening (ICD-10-PCS; 2025-07-17)
PROC: 0DTN0ZZ Resection of Sigmoid Colon, Open Approach (ICD-10-PCS; principal; 2025-07-17 12:00)
DX: K56.2 Volvulus (principal); Q43.8 Other specified congenital malformations of intestine; E86.0 Dehydration; F98.8 Other specified behavioral and emotional disorders with onset usually occurring in childhood and adolescence; K21.9 Gastro-esophageal reflux disease without esophagitis; M54.16 Radiculopathy, lumbar region; H40.9 Unspecified glaucoma; Z96.82 Presence of neurostimulator; Z79.891 Long term (current) use of opiate analgesic
CPT/HCPCS: 00811; 00840; 36415; 74018; 74177; 76942; 80048; 83605; 85025; 87040; 88305; 88307; 93005; 93010; 94760; 94762; 94799; 96365; 96375; 96376; 97116; 97161; 97166; 97530; 97535; 99285-25; A9270; G0378; J0131; J0690; J0696; J1100; J1885; J2003; J2270; J2405; J2704; J2795; J3010; J3475; J3490; J7121; Q9967

== ENCOUNTER 2025-07-25 14:00 | Emergency (ER) | payer MEDICARE, OTHER ==
[~2025-07-25] VITALS: Ht 193 cm; Wt 94.9 kg
[~2025-07-25 14:00] MED LIST changes: +ACETAMINOPHEN500 MG PO; +COLACE100 MG PO; +DORZOLAMIDE-TIM10 ML OS; +DULOXETINE HCL60 MG PO; +FAMOTIDINE20 MG PO; +IBUPROFEN600 MG PO; +PEPCID20 MG PO; +ZANAFLEX4 MG PO
--- OUTSIDE RECORDS SUMMARY | 2025-07-25 14:08 | XMS ---
PreManage Notification: HONEY REECE Security [employer] Events No recent Security Events currently on file CRITERIA MET - [facility] - 2 Visits in 30 Days CARE PROVIDERS [facility] Current PHONE: Unknown Martell has no Care Guidelines for this patient. Chiara VISIT COUNT (12 MO.) 3 [facility] TOTAL 3 NOTE: Visits indicate total known visits. ED/UCC VISIT TRACKING (12 MO.) 07/25/2025 14:01 [facility] TYPE: Emergency COMPLAINT: - LOOSE STOOL 07/16/2025 03:15 [facility] TYPE: Emergency COMPLAINT: - ABDOMINAL PAIN 07/15/2025 18:53 [facility] TYPE: Emergency COMPLAINT: - ABDOM PAIN/BOWL PROBLEM DIAGNOSES: - Constipation, unspecified - Dehydration - Other watermelon harvesting supervisor (current) drug therapy INPATIENT VISIT TRACKING (12 MO.) 07/16/2025 09:[address] [facility] [address] [facility] [place] TYPE: Medical Surgical COMPLAINT: - SIGMOID VOLVULUS [email or web address]
[2025-07-25 14:37] LABS: BASOPHILS 1.1 % (0.2-1.2); EOSINOPHILS 3.6 % (0.8-7.0); LYMPHOCYTES 13.4 % (21.8-53.1); MCH 32.9 PG (25.7-32.2); MCHC 34.4 g/dL (32.3-36.5); MCV 95.8 fL (79.0-92.2); MONOCYTES 12.8 % (5.3-12.2); NEUTROPHILS 68.2 % (34.0-67.9); RBC 4.04 M/uL (4.63-6.08)
[2025-07-25] MEDS ORDERED: SODIUM CHLORIDE 0.9% 1,000 ML IV ONE (14:45)
[2025-07-25 14:50] LABS: ALT (SGPT) 29.0 U/L (14-59); AST (SGOT) 29.0 U/L (15-37); GLOMERULAR FILTRATION RATE,EST 74.0 mL/min (>60); PROTEIN, TOTAL 6.2 g/dL (6.4-8.2); UREA NITROGEN 23.0 mg/dL (7-18)
[2025-07-25 15:14] LABS: BLOOD/HGB, URINE TRACE-I (Negative); KETONE, URINE NEGATIVE (Negative); LEUK ESTERASE, URINE NEGATIVE (negative); NITRITE, URINE NEGATIVE (negative)
[2025-07-25 15:19] LABS: BACTERIA, URINE NONE SEEN /hpf (negative); CASTS, URINE HYALINE 2+ \\lpf; CRYSTALS, URINE NONE SEEN (0-1+); EPITHELIAL CELLS, URINE SQUAMOUS 1+ /lpf (0-1+); REFLEX CULTURE, URINE No (No)
[2025-07-25] MEDS ORDERED: LOPERAMIDE HCL 2 MG CAP PO ONE (18:45)
[2025-07-25 18:53] VITALS: BP 142/99
== END 2025-07-25 18:55 | disposition home or self-care (01) ==
LOC: ED 14:00
PROVIDERS: Emergency Medicine
DX: R19.7 Diarrhea, unspecified (principal); Z90.49 Acquired absence of other specified parts of digestive tract; Z79.899 Other long term (current) drug therapy
CPT/HCPCS: 36415; 80053; 81001; 85025; 96360; 99284; J7030